=== PATIENT | female | born 1945 | race Caucasian/White ===

== ENCOUNTER 2019-06-10 07:59 | Day surgery (SDC) | payer MEDICARE, OTHER, SELFPAY ==
[2019-05-24 08:23] VITALS: BMI 34.4
[2019-06-10] VITALS (13 sets, daily range): BP systolic 104–145; BP diastolic 52–84; PULSE 79–105; RESP 10–18; TEMP 35.8–36.7; O2SAT 91–97; BMI 32.1
--- NOTE | 2019-06-10 | DI.RAD.S_ITS ---
PROCEDURE: XR HIP W PEL IF DONE RT 4V INDICATIONS: HIP REVISION. TECHNIQUE: 2 view(s) of the hip acquired. [facility] [place], XR PELVIS WITH LATERAL HIP RIGHT, 02/22/2019, 11:14. FINDINGS: Bones: Patient is status post right hip arthroplasty, with hardware components in expected positions. The hip joint appears congruent. The visualized bony structures appear intact. Soft tissues: Overlying postoperative changes are noted. No suspicious soft tissue densities. IMPRESSION: Right total hip arthroplasty procedure, normal alignment established. Dictated by: Moises Bill M.D. on 06/10/2019 at 13:55 Approved by: Moises Bill M.D. on 06/10/2019 at 13:56
--- NOTE | 2019-06-10 06:00 | DI.RAD.S_ITS ---
PROCEDURE: XR PELVIS 1-2V INDICATIONS: post op films TECHNIQUE: Intra-operative view of the pelvis and hip acquired. COMPARISON: [facility], CR, XR HIP W PEL IF DONE RT 4V, 06/10/2019, 12:36. FINDINGS: Bones: Intraoperative devices prior to placement of arthroplasty prostheses are in expected positions. No fractures or suspicious bony lesions. Soft tissues: Overlying surgical retractors are present, along with other intraoperative changes. IMPRESSION: Postoperative change status post right total hip arthroplasty. Dictated by: Cristal Ren M.D. on 06/10/2019 at 16:04 Approved by: Cristal Ren M.D. on 06/10/2019 at 16:04
[2019-06-10] MEDS: ACETAMINOPHEN 325 MG TABLET 975 MG PO (08:43)
[2019-06-10] MEDS: MELOXICAM 7.5 MG TABLET 15 MG PO (08:44)
[2019-06-10] MEDS: PREGABALIN 75 MG CAPSULE PO (08:44)
[2019-06-10] MEDS: LACTATED RINGERS 1,000 ML 42 ML IV ×2 (08:54→11:59)
[2019-06-10] MEDS: CLINDAMYCIN 900 MG/50 ML PIGGYBACK 50 MG IV (10:28)
[2019-06-10] MEDS: TRANEXAMIC ACID 1,000 MG VIAL 1000 MG INJ ×2 (10:45→12:55)
--- NOTE | 2019-06-10 11:09 | SUR.OPER ---
Supine on padded Knippa table with bilateral legs secured in padded positioning boots and suspended in positioning spars, operative leg in traction per surgeon. Head on one pillow. Arm on non-operative side secured on padded armboard <90 degrees abduction. Arm on operative side padded and resting across chest then secured with tape over sheet. Padded perineal post in place per surgeon.
[2019-06-10] MEDS: KETOROLAC 30 MG/ML VIAL IV (11:16)
[2019-06-10] MEDS: ROPIVACAINE 0.5% PF 5 MG/ML 20ML VIAL 60 ML INJ (11:16)
[2019-06-10] MEDS: MORPHINE 4 MG/ML INJ INJ (11:17)
--- NOTE | 2019-06-10 13:10 | PM.OP.1 ---
Operative Date/Time/Diagnoses Date of procedure: 06/10/19 Time of procedure: 13:10 Pre-op diagnosis: R hip OA Post-op diagnosis: same Procedure & Clinicians Procedure: Right anterior MIHAI Same procedure as scheduled: Yes Indications: right hip OA Surgeon: Juvenal Juares Medical Assistant Cardiology: Mamadou Robles Anesthesia Type: Spinal Operative Notes Findings: right hip OA Closure Type: primary Specimen(s): none sent Prosthetic devices, grafts, tissues, transplants, or devices: Bunn and Nephew: 50mm 3-hole R3 cup 50 x 32 XLPE liner 1x 25mm screw 1x 20mm screw Size 9 anthology stem standard offset Biolox 32mm + 0 head Estimated Blood Loss (mL): 300 Blood products transfused: none Procedure in detail: Patient was met in the preoperative holding area where the site and side of surgery were marked by . All last minute questions were answered. Patient was then brought back into the operating room where she was transferred on to the on a table and a spinal anesthetic was placed. Patient then placed supine and both feet were placed in the Ainsworth table boots. The right lower extremity was then prepped and draped in normal sterile fashion. A time-out was performed verifying the site and side of surgery as well as the name of the patient. A 7 cm long incision approximately 2 cm distal and 1 cm lateral from the ASIS image which the fibular head was made. Incision was made using 10. Blade. Followed by electrocautery down to the tensor fascia. Tensor fascia was opened with a new 10 blade. An Allis clip was then placed on the medial leaflet and the tensor was then retracted laterally. The Cobra was then placed over the superior neck. A Meyerding was used to retract the rectus femoris medially and the recurrent vessels were then coagulated. This was Followed by a Cobra under the inferior neck. Retractor was then placed over the anterior wall underneath the rectus. A capsulotomy was then performed intact sutures were placed in the superior and inferior leaflet. A neck cut was then used within reciprocating saw. The foot was then externally rotated 45? and a corkscrew was used to remove the femoral head. The soft tissue protector was then placed followed by replacement of the retractors. We began reaming with a 45 mm Reamer followed by 4749 mm reamers. A 50 mm cup was selected. This was placed underneath fluoroscopic guidance. Two screws were then placed a 25 mm screw and a 20 mm screw. The 50 mm x 32 mm XL PE liner was then placed. Verify that all tabs were down. Foot was then brought back into neutral alignment a femoral elevator hook was placed underneath the femur the foot was dropped onto the ground and a Hughes retractors placed over the medial calcar. A bent Hohmann was then placed over the top of the greater trochanter in the capsule and short external rotators were released as necessary to bring the femur up into the wound. The femur was then elevated using the femoral elevator hook. The canal finer was used followed by the starting broach followed by a 1. Broach all the way up to a 9. Broach we calcar reamed off of this. A standard offset neck was then selected followed by 32 mm +0 trial head. This was reduced and found to be stable at 90? of external rotation as well as 90? of external rotation and full extension down to the floor. Approximately was used to verify good canal fit as well as leg lengths. The hip was then dislocated the trial components were removed and a 9. Final anthology standard offset stem was placed followed by a bio locks 32 mm +0 head. This was then malleted into place on the trunnion. This was then reduced the wound was thoroughly irrigated and final films were obtained. Capsule was then closed with an Ethibond followed by a running 1. Vicryl in the tensor fascia layer followed by 2 Vicryl then a strata fix in the subcuticular layer. Dermabond and Aquacel dressing was then placed. Complications: none Post-operative Condition: stable Disposition: PACU Plan for aftercare: Weightbearing as tolerated right lower extremity. No hip precautions. ASA 81 mg b.i.d. for 6 weeks.
[2019-06-10] MEDS: fentaNYL 100 MCG/2 ML INJ IV ×2 (13:22→13:34)
--- NOTE | 2019-06-10 13:52 | SUR.PHASEI ---
Report called to Jalil.
--- NOTE | 2019-06-10 14:10 | PC.NURSE ---
Day shift: Pt on unit at approx 1410. Oriented to room and call light. Aquacel is intacted with marked shadow drainage. SCD's in place. CMS OK. VS WNL. RA 96%. Call light in reach. Agrees to not get OOB w/o help from staff. Friend at bedside for support.
--- NOTE | 2019-06-10 14:17 | SUR.PHASEI ---
Patient transferred to the floor with belongings bag. VS stable. IV saline locked. Rt hip dressing unchanged. Report given to Jalil.
[2019-06-10] MEDS: ACETAMINOPHEN 325 MG TABLET 650 MG PO ×2 (14:41→21:25)
[2019-06-10] MEDS: HYDROCODONE/ACET 5/325 TABLET 1 TAB PO ×2 (14:41→22:28)
[2019-06-10] MEDS: LACTATED RINGERS 1,000 ML 125 ML IV ×2 (14:52→23:30)
--- NOTE | 2019-06-10 16:34 | PT.IIE ---
Current Diagnoses Unilateral primary osteoarthritis, right hip (06/10/19) Surgery Performed Operation Date: 06/10/19 10:15 Actual Procedures p Total Hip Arthroplasty/Anterior Approach(Right) - Juvenal Juares MD Surgical History (Last Updated 05/24/19 @ 12:39 by Daly Amaral, RN) History of (Acute) History of cholecystectomy (Acute) History of hysterectomy (Acute) S/P foot surgery, left (Acute ~05/2018) Medical History (Last Updated 05/24/19 @ 12:40 by Daly Amaral, RN) Heartburn (Acute) History of colitis (Acute) Primary osteoarthritis of right hip (Acute) Physical Therapy Inpatient Evaluation/Re-Eval M1 PT/OT-IP Prior Functional Status Start: 06/10/19 15:36 Freq: NEEDED Status: Active Protocol: Document 06/10/19 16:11 AW (Rec: 06/10/19 16:34 AW [id number]) Medical Review Prior Functional Status Medical History Reviewed Yes Communication WNL Mobility and Gait Pt broke several bones in her left foot ~2 years ago from a fall. She was treated surgically and was NWB for 3 months. She states her gait has not been normal since that time. She does not typically use any type of AD and denies any limit to her ambulation distance. Activities of Daily Living and IADL's Independent including driving. Prior Functional Level (Other details) Pt reports no falls in 2 years . Social History Household Members none Living Arrangements House Number of Floors (Floors) One Floor Number of Stairs To Enter/Railing? Level entrance. Home Environment High Toilet,Walk in Shower Home Equipment Front Wheel Walker,Straight Cane,Shower Seat without Backrest,Material Worker,Grab Bars Near Toilet,Grab Bars In Shower Employment Status Retired Additional Social History Comment Pt lives alone in a [place]+ community. She describes herself as a . Her sister , Susanne, will stay with her for 7 days at discharge. M2 PT-IP Current Condition Start: 06/10/19 15:36 Freq: NEEDED Status: Active Protocol: Document 06/10/19 16:11 AW (Rec: 06/10/19 16:34 AW [id number]) Physical Therapy Current Condition Current Condition Evaluation Date 06/10/19 Treatment Diagnosis R MIHAI with anterior approach Precautions Other Precautions No hip precautions, per op note. Weight Bearing Status Weight Bearing Status Weight Bear as Tolerated M3 PT-IP Subjective Start: 06/10/19 15:36 Freq: NEEDED Status: Active Protocol: Document 06/10/19 16:11 AW (Rec: 06/10/19 16:34 AW [id number]) Subjective Physical Therapy Visit Type Type Initial Evaluation Visit Start Time 15:44 Visit Stop Time 16:10 Total Visit Minutes 26 Notes Pt's sister, Susanne, present throughout evaluation. Number of TELECOM FIELD TECHNICIAN Visits 0 Physical Therapy Visit Comments Patient Comments Pt willing to mobilize with PT . Patient Goals Pt plans to discharge home with her sister helping out. Therapy Pain Assessment Pain When Pain Assessed During Mobility Pain Present Pain Present Pain Reported Location Rt Hip Intensity 6 Scale Used 6/10 at rest; unchanged with mobility Pain Management Techniques Apply Cold,Modification of Treatment,Timing of Activity with Medications M4 PT-IP Mobility and Gait Start: 06/10/19 15:36 Freq: NEEDED Status: Active Protocol: Document 06/10/19 16:11 AW (Rec: 06/10/19 16:34 AW [id number]) PT-Bed Mobility Assessment Supine to Sit Supine to Sit Standby Assistance Scooting Scooting to Edge of Bed Standby Assistance PT-Transfer Assessment Sit to and From Stand Sit to and from Stand Contact Guard Assistance Equipment Transfer Assistive Device Gait Belt,Front Wheeled Walker Orthotic/Prosthetic Devices or Brace: No Transfers Transfer Destination Chair,Toilet Transfer Technique pt ambulated with FWW Transfer Ability Level of Assist Contact Guard Assistance Comments Mobility Comments Pt was sitting up in bed upon PT arrival. She completed supine to sit SBA and stood at EOB using FWW CGA and cues for hand placement. She ambulated to the toilet where she transferred to and from using the grab bars for support CGA. After gait assessment, she transferred to the chair CGA and was positioned with call light and table within chay, RN attending. Gait Assessment Gait Gait Assistance Required: Standby Assistance,Contact Guard Assist Distance (Feet) 100 Able to Maintain Weight Bearing Status Yes During Gait Assistive Devices Assistive Device Gait Belt,Front Wheeled Walker Orthotic/Prosthetic Devices or Brace: No Gait Deviations General Gait Pattern Antalgic,Decreased Stride Length,Decreased Feet Clearance,Flexed Trunk,Step-to Gait Factors Limiting Gait Function Factors Limiting Gait Function Decreased Strength,Pain Comments Gait Comments Pt ambulated in the solis using FWW CGA to SBA. She was able to correct her step length discrepancy in response to cues. She required additional cueing to maintain proper positioning within the walker frame - not letting the walker get too far ahead of her trunk. Stair Climbing Assessment Comments Stair Climbing Comments Not assessed. No stairs at home. PT-Balance Assessment Sitting Balance and Reactions Static Sitting Balance Ability Good Dynamic Sitting Balance Ability Good Standing Balance and Reactions Static Standing Balance Ability Good Dynamic Standing Balance Ability Good Device Used FWW M5 PT-IP Objective Assessments Start: 06/10/19 15:36 Freq: NEEDED Status: Active Protocol: Document 06/10/19 16:11 AW (Rec: 06/10/19 16:34 AW [id number]) Orientation Orientation/Cognition Level of Alertness Alert Orientation Name,Date,Year,Day of Week, Place,Situation Language Function Ability No Deficits Noted Safety Awareness Understands Safety Issues Memory Description No Deficits Noted Gross Range of Motion Upper Extremity ROM Assessment Within Functional Limits Lower Extremity ROM Assessment Right Impaired Strength Upper Extremity Strength Assessment Within Functional Limits Lower Extremity Strength Assessment Right Impaired Comments Strength Comments LLE grossly 4+/5 Coordination Assessment Gross Coordination Gross Coordination WNL Sensation Assessment Sensation Gross Sensation WNL Muscle Tone Muscle Tone WNL Yes M6 PT-IP Treatment Start: 06/10/19 15:36 Freq: NEEDED Status: Active Protocol: Document 06/10/19 16:11 AW (Rec: 06/10/19 16:34 AW [id number]) Physical Therapy Treatment Exercises Exercises Ankle Pumps,Gluteal Sets,Quad Sets,Heel Slides Education Education Provided Precautions,Weight Bearing Status,Post-Op Packet,Safety Other Treatments Other Treatment Performed Provided education on role of PT, plan of care, weightbearing status, lack of hip precautions, and safe use of FWW. M7 PT-IP Assessment and Plan Start: 06/10/19 15:36 Freq: NEEDED Status: Active Protocol: Document 06/10/19 16:11 AW (Rec: 06/10/19 16:34 AW [id number]) PT Summary Assessment and Plan Potential Rehabilitation Potential Excellent Status of Condition at Evaluation Evolving Summary Impairments Pain,ROM,Strength,Balance,Bed Mobility,Transfers,Gait Assessment Summary Yessenia is a 73 yo woman seen for PT evaluation on POD0 following right MIHAI with anterior approach. Per op note , there are no hip precautions . At baseline, pt admits to gait being affected by remote left foot fractures but is independent without AD and without limit to distance. On evaluation, pt required SBA for bed mobility, CGA for transfers and ambulation with FWW. Pt was able to correct her step-to pattern in response to cues. PT anticipates she will meet the goals of this plan of care and be safe to discharge home with her sister providing assist. She already has outpatient PT set up at [facility] in [place]. Goals Bed Mobility Goal Independent Transfer Goal Independent,Front Wheeled Walker Gait Goal Independent,Front Wheel Walker Gait Distance 220 Days to Meet Goals 2 Frequency of Treatment Frequency Of Treatment Twice a Day Treatment Plan Physical Therapy Treatment Plan Bed Mobility Training,Transfer Training,Gait Training, Therapeutic Exercise,Balance Retraining,Post Op Education, Discharge Planning,Hot or Cold Pack,Neuromuscular Re-ed, Coordination Retraining,Manual Therapy Other Recommendations and Next Treatment review ther ex; progress gait Focus distance Recommendations To Nursing Amount of Assist Needed 1 Person Assist Discharge Recommendations PT Discharge Recommendations Home with Assistance, Outpatient PT Transportation Needs at Discharge Private Vehicle
[2019-06-10] MEDS: CEFAZOLIN 2 GM/100 ML FROZ.PIGGY IV (18:11)
[2019-06-10 18:21] LABS: INR 1.1 (0.9-1.3); Prothrombin Time 12.3 SECONDS (10.1-12.7)
[2019-06-10] MEDS: ASPIRIN EC 81 MG TABLET PO (21:25)
[2019-06-10] MEDS: MELATONIN 3 MG TABLET 9 MG PO (21:25)
[2019-06-10] MEDS: DOCUSATE 100 MG CAPSULE PO (21:25)
[2019-06-10] MEDS: TIZANIDINE 4 MG TABLET 2 MG PO (21:26)
[2019-06-11] MEDS: CEFAZOLIN 2 GM/100 ML FROZ.PIGGY IV (01:29)
[2019-06-11 03:57] VITALS: BP 138/75; PULSE 92; RESP 18; TEMP 37.1; O2SAT 96
[2019-06-11] MEDS: HYDROCODONE/ACET 5/325 TABLET 1 TAB PO (04:12)
[2019-06-11 06:24] LABS: Hematocrit 30.9 % (36-46); Hemoglobin 10.5 g/dL (12.0-16.0)
--- NOTE | 2019-06-11 07:44 | P.PN_ITS ---
Subjective Subjective Date Patient Seen: 06/11/19 Time Patient Seen: 10:02 Interval history: Louie is POd#1 s/p Right MIHAI with Dr. Juares. Pain has been controlled with Tylenol and occasional half tab of [place]. She has significant nausea with narcotics so trying to minimize using this. One episode of emesis last night but denies any nausea this morning. She mobilized about the room without issue. No chest pain or shortness of breath. Exam Vital Signs (past 8 hours): - 06/11/19 03:57 Temperature 98.7 F Pulse Rate 92 H Respiratory Rate 18 Blood Pressure 138/75 Pulse Oximetry 96 Oxygen Delivery Method Room Air Oxygen Flow Rate 0 Narrative Exam Narrative: 73 year old female resting in chair. Alert and oriented in no acute distress. Dressing over right hip saturated. Patient able to fire ankle flexors/extensors. Calf soft and compressible. Pulses symmetric. Objective Labs Result Diagrams: 06/11/19 06:10 Labs: Laboratory Results - last 24 hr 06/10/19 06/11/19 18:05 06:10 Hgb 10.5 L Hct 30.9 L PT 12.3 INR 1.1 Assessment & Plan Assessment & Plan narrative: Patient progressing well post operatively. Dressing change performed today. If she continues to drain will consider pressure dressing. Mobilize with PT later today. She has [place] at home provided preoperatively. Discharge to home later today if cleared with PT. Quality VTE Deep Vein Thrombosis/Pulmonary Embolism Present on Admission: No
--- NOTE | 2019-06-11 08:10 | PT.IPTN ---
Current Diagnoses Unilateral primary osteoarthritis, right hip (06/10/19) Surgery Performed Operation Date: 06/10/19 10:15 Actual Procedures p Total Hip Arthroplasty/Anterior Approach(Right) - Juvenal Juares MD Physical Therapy Treatment Note M2 PT-IP Current Condition Start: 06/10/19 15:36 Freq: NEEDED Status: Active Protocol: Document 06/10/19 16:11 AW (Rec: 06/10/19 16:34 AW [id number]) Physical Therapy Current Condition Current Condition Evaluation Date 06/10/19 Treatment Diagnosis R MIHAI with anterior approach Precautions Other Precautions No hip precautions, per op note. Weight Bearing Status Weight Bearing Status Weight Bear as Tolerated M3 PT-IP Subjective Start: 06/10/19 15:36 Freq: NEEDED Status: Active Protocol: Document 06/11/19 08:10 CLB (Rec: 06/11/19 10:23 CLB [id number]) Subjective Physical Therapy Visit Type Type Treatment Note Visit Start Time 08:10 Visit Stop Time 08:21 Total Visit Minutes 21 Number of FORENSIC INVESTIGATOR Visits 1 Therapy Pain Assessment Pain When Pain Assessed During Mobility Pain Present Pain Present Pain Reported Location Rt Hip Scale Used did not rate Description Pressure Pain Behaviors Wincing Pain Management Techniques Apply Cold,Modification of Treatment,Timing of Activity with Medications M4 PT-IP Mobility and Gait Start: 06/10/19 15:36 Freq: NEEDED Status: Active Protocol: Document 06/11/19 08:10 CLB (Rec: 06/11/19 10:23 CLB [id number]) PT-Bed Mobility Assessment Supine to Sit Supine to Sit Standby Assistance Sit to Supine Sit to Supine Standby Assistance Scooting Scooting to Edge of Bed Standby Assistance PT-Transfer Assessment Sit to and From Stand Sit to and from Stand Standby Assistance Equipment Transfer Assistive Device Gait Belt,Front Wheeled Walker Orthotic/Prosthetic Devices or Brace: No Transfers Transfer Destination Bed,Chair Transfer Technique pt ambulated with FWW Transfer Ability Level of Assist Standby Assistance Comments Mobility Comments Pt in chair upon arrival. Pt stood SBA and ambulated in solis ~240ft with FWW/SBA. Pt required cues for walker position. Pt required SBA for [id number] and pt performed theraputic exercises . Pt required SBA for supine- sit-stand and transfer to chair with verbal cue to place hands on stable surface for sit-stand. Left pt in chair with call light and all other needs within reach. RN and student RN present. Gait Assessment Gait Gait Assistance Required: Standby Assistance Distance (Feet) 240 Able to Maintain Weight Bearing Status Yes During Gait Assistive Devices Assistive Device Gait Belt,Front Wheeled Walker Orthotic/Prosthetic Devices or Brace: No Gait Deviations General Gait Pattern Antalgic,Decreased Stride Length,Decreased Feet Clearance,Flexed Trunk,Step-to Gait Factors Limiting Gait Function Factors Limiting Gait Function Decreased Strength,Pain Comments Gait Comments see mobility comments Stair Climbing Assessment Comments Stair Climbing Comments Not assessed. No stairs at home. PT-Balance Assessment Sitting Balance and Reactions Static Sitting Balance Ability Good Dynamic Sitting Balance Ability Good Standing Balance and Reactions Static Standing Balance Ability Good Dynamic Standing Balance Ability Good Device Used FWW M5 PT-IP Objective Assessments Start: 06/10/19 15:36 Freq: NEEDED Status: Active Protocol: Document 06/10/19 16:11 AW (Rec: 06/10/19 16:34 AW [id number]) Orientation Orientation/Cognition Level of Alertness Alert Orientation Name,Date,Year,Day of Week, Place,Situation Language Function Ability No Deficits Noted Safety Awareness Understands Safety Issues Memory Description No Deficits Noted Gross Range of Motion Upper Extremity ROM Assessment Within Functional Limits Lower Extremity ROM Assessment Right Impaired Strength Upper Extremity Strength Assessment Within Functional Limits Lower Extremity Strength Assessment Right Impaired Comments Strength Comments LLE grossly 4+/5 Coordination Assessment Gross Coordination Gross Coordination WNL Sensation Assessment Sensation Gross Sensation WNL Muscle Tone Muscle Tone WNL Yes M6 PT-IP Treatment Start: 06/10/19 15:36 Freq: NEEDED Status: Active Protocol: Document 06/11/19 08:10 CLB (Rec: 06/11/19 10:23 CLB [id number]) Physical Therapy Treatment Exercises Exercises Ankle Pumps,Gluteal Sets,Quad Sets,Heel Slides Education Education Provided Precautions,Weight Bearing Status,Post-Op Packet,Safety M7 PT-IP Assessment and Plan Start: 06/10/19 15:36 Freq: NEEDED Status: Active Protocol: Document 06/11/19 08:10 CLB (Rec: 06/11/19 10:23 CLB [id number]) PT Summary Assessment and Plan Potential Rehabilitation Potential Excellent Status of Condition at Evaluation Evolving Summary Impairments Pain,ROM,Strength,Balance,Bed Mobility,Transfers,Gait Assessment Summary Pt is SBA for all mobility and has good safety awareness. Pt ambulated ~240ft with steady gait requiring SBA. Pt seems safe to d/c home with sister to assist when medically stable. Goals Bed Mobility Goal Independent Transfer Goal Independent,Front Wheeled Walker Gait Goal Independent,Front Wheel Walker Gait Distance 220 Days to Meet Goals 2 Frequency of Treatment Frequency Of Treatment Twice a Day Treatment Plan Physical Therapy Treatment Plan Bed Mobility Training,Transfer Training,Gait Training, Therapeutic Exercise,Balance Retraining,Post Op Education, Discharge Planning,Hot or Cold Pack,Neuromuscular Re-ed, Coordination Retraining,Manual Therapy Recommendations To Nursing Amount of Assist Needed 1 Person Assist Discharge Recommendations PT Discharge Recommendations Home with Assistance, Outpatient PT Transportation Needs at Discharge Private Vehicle
[2019-06-11] MEDS: ASPIRIN EC 81 MG TABLET PO (08:28)
[2019-06-11] MEDS: ACETAMINOPHEN 325 MG TABLET 650 MG PO (08:29)
[2019-06-11] MEDS: DOCUSATE 100 MG CAPSULE PO (08:29)
[2019-06-11] MEDS: MELOXICAM 7.5 MG TABLET 15 MG PO (08:32)
[2019-06-11 08:55] VITALS: BP 148/76; PULSE 94; RESP 18; TEMP 36.5; O2SAT 97
--- NOTE | 2019-06-11 09:29 | CM.DANOTE ---
DCP/Assessment: Reviewed chart. Patient is 73yr old female admitted to [facility] for right MIHAI performed on 06-10-[address] Juares. PCP is Leandra Chaidez. Primary payor is 1)Medicare 2)Commercial. Met with patient explained CM/SW role. Patient reports that she plans to d/c home when medically stable. Patient has supportive sister/Susanne whom will be staying with her. Patient plans to do outpatient therapy and has all needed DME. Therapy following. P: Home when stable. 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 No Advance Directives on File No: Declined History Provided By Patient,Medical Record Prior Living Arrangements House Household Members none Type of transporation used prior to Drives own vehicle admit Independent with ADL's Yes Is patient alert and oriented? Yes Caregiver for Another No DME Already Rented / Owned FWW / Walker Patient/Family Preference OP PT Therapy Barriers to Discharge No Discharge Plan Home Transportation Arrangement Patient's family can provide transport when patient medically stable. Whiteboard Updated in Patient Room with Yes name and ext. # of Billiard Table Assembler Review Status In Process Next Review Type Continued Stay Review Pre-Anesthesia Assessment Start: 05/24/19 08:23 Freq: Status: Complete Protocol: Document 05/24/19 08:23 [facility] (Rec: 05/24/19 08:36 [facility] [id number]) Pre-Anesthesia Assessment Preferred Name Yessenia Patient Information Reviewed Via Chart Review Assessment Completed With Patient Diagnostic Results EKG Primary Care Provider Sri Thompson Medical Clearance Received Yes Seen Specialist in Last 12 Months Yes Specialist Seen Orthopedist,Spare Parts Clerk Primary Language Grenadian Hydraulic Rubbish Compactor Mechanic Required No Height 165.1 cm Weight 93.9 kg Body Mass Index (BMI) 34.4 Hearing Ability Normal Visual Impairment Partially Limited Visual Assist Glasses Dentition Type Teeth, Natural Present,Dental Implants Barriers to Learning Visual Other Aids No Hx Anesthesia Reactions Yes: N&V Hx Family Anesthesia Reaction No Hx Malignant Hyperthermia No Hx Blood Transfusions No Hx Blood Transfusion Reaction No Anesthesia Review Requested Yes: N&V Electrical Line Mechanic No alcohol intake current alcohol intake frequency 0-2 drinks per day Smoking Status Never smoker Substance Use Type does not use Pain Present Pain Reported Comment Right hip and back Musculoskeletal Symptoms Abnormal Gait,Back Pain, Difficulty Walking,Joint Pain, Joint Stiffness,Joint Swelling ,Limited Range of Motion,Neck Pain History of Falling (Recent or History of Yes ) Patient is completely paralyzed or No completely immobile Ambulatory Aid None/bed rest/nurse assist Gait/Transferring Normal/bedrest/immobile Mental Status Oriented to own ability Is patient on oxygen? No Does patient have VEGA/SOB No Hx Sleep Apnea No CPAP/BIPAP use not prescribed Currently Taking a Beta Bill No Can You Climb a Flight of Stairs Without No SOB Hx Chest Pain No Hx SOB No Hx Syncope or Dizziness No Anti-Coagulant Therapy No Has a Cloth Wire Weaver No Cardiac Testing No Hx Pacemaker/ICD No Pacemaker Rep Required? No Cardiac Clearance Received Not Applicable Diet Type At Home Regular dysphagia No Comment avoids rich or spicy foods Bladder Pattern Incontinent, Stress Urinary Catheter Present No Hx Urinary Self Catheterization No Diabetes No HgbA1C 5.6 Date 04/29/19 Patient No Lactating No Hx Drug Resistant Organism No Presence of External or Internal Medical No Devices Have you traveled outside the [facility] States in the last 30 days? Marital Status Lives With none Prior Living Arrangements House Number of Floors (Floors) One Floor Number of Stairs To Enter/Railing? no stairs Support System Friend(s),Sibling(s) Does the Patient Have Assistance After Yes Surgery Patient Discharge Plan Description Return Home Comment sister will be there 2-3 days Feels Safe in Current Environment Yes Been Physically Hurt or Threatened By a No Person in Current Environment Do you have thoughts of harming yourself None or others? Are you currently considering suicide? No Do you have a plan to hurt yourself or No Plan others? Do You Have Any Spiritual Beliefs That No May Affect Your HC Choices? Do You Have Any Cultural Practices That No May Affect Your HC Choices? Spiritual Referral None Comment Religious Who Can We Speak to About Patient's Care Family & Friends Identifying Code for Release of Patient Declined Information Health Care Proxy/Next of Kin Medardo To Health Care Proxy Emergency Contact Name Daughter Zaria To Emergency Contact Advance Directives? No Advance Directives on File No: Declined Requested Patient Bring Advanced Not Applicable Directives DOS Power of Cloth Examiner Name Daughter - Sri To Power of Cloth Examiner PAC Instructions Assistance for 24 hours post- op,Do not shave/clip surgical site,Durable medical equipment ,Medications to take/avoid, Nasal antibiotic,No ETOH/ petroleum product on skin DOS, NPO,Ortho class,Post-op transportation,Pre-op antibiotic,Pre-surgical wash, Sensory aids,Sturdy shoes/ comfortable clothes,Do not bring valuables and remove jewelry
--- NOTE | 2019-06-11 10:46 | PC.NURSE ---
Day shift: Pt left unit in WC with SUZETTE Garrett. Paperwork is signed and all questions answered. Pt already had MD scripts. DANIEL Steinberg came up and applied a pressure dressing prior to the d/c and Pt and Pt's sister instructed mirtha how to change the dressing to Aquacel in 3 days and also to call SNO if dressing gets over saturated. Pt has all personal belongings.
== END 2019-06-11 10:49 | disposition home or self-care (01) ==
LOC: AC 06-11 07:34 → OR 06-11 11:25
PROVIDERS: Referring Provider Orthopaedic Surgery Foot and Ankle Surgery; Visit Provider Orthopaedic Surgery Adult Reconstructive Orthopaedic Surgery
PROC: (CPT 27130; principal; 2019-06-10 10:15)
DX: M16.11 Unilateral primary osteoarthritis, right hip (principal)
CPT/HCPCS: 27130; 36415; 72170; 73503; 76000; 85014; 85018; 85610; 97110; 97161; C1776; J0690; J1885; J2270; J2704; J3010

== ENCOUNTER → 2022-01-31 10:45 | Outpatient (CLI) | payer MEDICARE, OTHER, SELFPAY ==
[2019-06-10 14:27] VITALS: BMI 32.1
[2022-01-31 11:24] LABS: COVID19 -Nasal RAPID Negative (Negative)
== END ==
PROVIDERS: PCP Family Medicine; Referring Provider Orthopaedic Surgery Orthopaedic Surgery of the Spine; Visit Provider Orthopaedic Surgery Orthopaedic Surgery of the Spine
DX: Z20.822 Contact with and (suspected) exposure to COVID-19 (principal)
CPT/HCPCS: 87635; C9803

== ENCOUNTER → 2022-02-14 13:30 | Outpatient (CLI) | payer MEDICARE, OTHER, SELFPAY ==
[2019-06-10 14:27] VITALS: BMI 32.1
[2022-02-14 15:02] LABS: COVID19 -Nasal RAPID Negative (Negative)
== END ==
PROVIDERS: PCP Family Medicine; Referring Provider Orthopaedic Surgery Orthopaedic Surgery of the Spine; Visit Provider Orthopaedic Surgery Orthopaedic Surgery of the Spine
DX: Z20.822 Contact with and (suspected) exposure to COVID-19 (principal)
CPT/HCPCS: 87635; C9803

== ENCOUNTER 2022-02-16 06:16 | Inpatient (IN) | payer MEDICARE, OTHER, SELFPAY ==
[2019-06-10 14:27] VITALS: BMI 32.1
[2022-01-26 08:21] VITALS: BMI 33.2
[2022-02-16] VITALS (21 sets, daily range): BP systolic 125–191; BP diastolic 72–104; PULSE 70–97; RESP 8–20; TEMP 36.2–36.7; O2SAT 90–98; BMI 33.2
--- NOTE | 2022-02-16 | DI.RAD.S_ITS ---
PROCEDURE: XR LUMBAR SPINE 2-3V INDICATIONS: L3-S1 TLIF TECHNIQUE: 2 intraoperative fluoroscopic views of the lumbar spine were acquired. COMPARISON: None. FINDINGS: Intraoperative fluoroscopic images shows transpedicular fusion at L3 through S1 levels with intervertebral spacer placement. IMPRESSION: Fluoro guidance was provided intraoperatively for posterior fusion of lumbar spine at L3 through S1 levels. Dictated by: Scooter Wilson M.D. on 02/16/2022 at 15:51 Approved by: Scooter Wilson M.D. on 02/16/2022 at 15:51
[2022-02-16] MEDS: LACTATED RINGERS 1,000 ML 42 ML IV ×2 (07:07→09:57)
[2022-02-16] MEDS: ACETAMINOPHEN 325 MG TABLET 975 MG PO (07:11)
[2022-02-16] MEDS: GABAPENTIN 100 MG CAPSULE 400 MG PO (07:17)
--- NOTE | 2022-02-16 07:45 | PM.PREOP ---
Pre-operative Note COVID-19 COVID-19 status: Negative Result date/Date tested (Pos, Neg/Pending): 02/15/22 Criteria for continued procedure: Expected advancement of disease process, Possibility delay results in more complex future surgery or treatment, Increased loss of function, Continuing or worsening of significant or severe pain, Deterioration of the patient's condition or overall health and Delay expected to result in less-positive ultimate med/surg outcome Interval Note History & Physical reviewed/Exam performed by Physician: Yes Changes to H&P: No
[2022-02-16] MEDS: CEFAZOLIN 2 GM/100 ML PREMIX 100 ML IV ×3 (08:01→19:15)
--- NOTE | 2022-02-16 08:26 | SUR.OPER ---
Prone on spine table, head in foam head support, padded chest and pelvic supports, gel pad at knees, lower legs supported by pillows; nipples, genitalia and toes free of pressure, arms secured on foam padded arm boards at <90 degrees abduction. Tape over blanket at thigh secured to table.
[2022-02-16] MEDS: BUPIVACAINE LIPOSOME 266 MG/20 ML VIAL INJ (08:34)
[2022-02-16] MEDS: BUPIVACAINE 0.25% (PF) 30 ML, EPINEPHrine 0.15 MG INJ (08:36)
--- NOTE | 2022-02-16 12:49 | PM.OP.1 ---
Operative Date/Time/Diagnoses Date of procedure: 02/16/22 Time of procedure: 07:40 Pre-op diagnosis: 1. Lumbar scoliosis 2. Lumbar spondylolisthesis 3. Lumbar spinal stenosis with neurogenic claudication Post-op diagnosis: same Procedure & Clinicians Procedure: Patient was seen in the preoperative area. Risks and benefits of the surgery was discussed with the patient. Informed consent was obtained from the patient and placed in the chart. Surgical site was marked. Patient was taken to the operative room. General anesthesia was administered. Prophylactic antibiotic was given to the patient less than 30 min before the incision was made. Patient was placed into a prone position on the Genaro table. Patient's back was then prepped and draped in the sterile fashion. Time-out was performed at this time. After patient was prepped and draped, patient's PSIS was palpated and marked bilaterally. Small 1 cm incision was made over the PSIS for placement of the reference probes. Two trocar was placed into the PSIS 1 on each side. The reference probe was attached to the trocar of the reference apparatus. 1. L3-4, L4-5, L5-S1 Postero-lateral and posterior interbody fusion 2. L3-4, L4-5, L5-S1 interbody cage placement. 3. L3-4, L4-5, L5-S1 decompressive laminectomy with bilateral facetecomies 4. L3-4, L4-5, L5-S1 Posterior segmental instrumentation 5. [place] of bone marrow from iliac crest 6. Utilization of microsurgical technique and operating microscope 7. Utilization of robotic assisted navigation Same procedure as scheduled: Yes Indications: Patient has been having chronic back pain and worsening lumbar radiculopathy. Patient failed multiple conservative management with worsening pain weakness and numbness in her lower extremity. Patient has been having difficulty performing activity of daily living. After discussing risks benefits of treatment options, patient elected proceed with surgery. Surgeon: Juarez Thorpe Human Resources Assistant Manager: Rossana Castillo Click Yes if Unassisted: No Anesthesia Type: General Operative Notes Closure Type: primary Specimen(s): none sent Prosthetic devices, grafts, tissues, transplants, or devices: Globus CREO MIS screws, Rise cages Applied: catheter Estimated Blood Loss (mL): 100 Blood products transfused: none Procedure in detail: Patient was seen in the preoperative area. Risks and benefits of the surgery was discussed with the patient. Informed consent was obtained from the patient and placed in the chart. Surgical site was marked. Patient was taken to the operative room. General anesthesia was administered. Prophylactic antibiotic was given to the patient less than 30 min before the incision was made. Patient was placed into a prone position on the Genaro table. Patient's back was then prepped and draped in the sterile fashion. Time-out was performed at this time. After patient was prepped and draped, patient's PSIS was palpated and marked bilaterally. Small 1 cm incision was made over the PSIS for placement of the reference probes. Two trocar was placed into the PSIS 1 on each side. The reference probe was attached to the trocar of the reference apparatus. At this time the C-arm imaging was used to confirm AP and lateral of L3-4, L4-L5, L5-S1 vertebrae and merged the C-arm imaging using the Transmetrics navigation system with the CT of the lumbar spine. After successful merging was completed and confirmed, skin marker was used to patricia out the skin incision using the Scarosso robotic arm. Bilateral incision was made at this time. Pre templated trajectory was used and guided using the Transmetrics navigation system for bilateral L3, L4, L5, S1 pedicle screw placement. This was done by using the robotic arm to guide the high-speed bur to make a cortical entry point. Next a drill was placed also using the robotic arm and guided using the navigation system drilling partially through bilateral L3, L4, L5 and S1 pedicles. Next L3, L4, L5, S1 pedicle screws it was pre templated and measured was placed onto the power warehouse associate driver and inserted into the pedicles bilaterally. After all 8 screws were placed C-arm imaging was taken of both AP and lateral to confirm the placement. Excellent placement of the screws were confirmed and a matched precisely with the pre planned screw placement using the navigation system. MARs retractor was inserted using Nimsoftivation guidence. Globus MARS retractors was placed inside the incision and docked onto the L3, L4 and L5 lamina. Using microsurgical technique and operating microscope, a L3, L4, L5 laminectomy and L3-4, L4-5, L5-S1 facetectomy was performed using a Kerrison rongeur. Patient was found have severe lateral recess and neural foramen stenosis which was fully decompressed after the laminectomy facetectomy. More than 75% of the facets were removed during the process of decompression rendering L3-4, L4-5, L5-S1 level grossly unstable and required a fusion procedure at the same time. The disc space at L3-4, L4-5, L5-S1 was identified, and a total diskectomy was performed at L3-4, L4-5, L5-S1 level. The endplates were decorticated using a rasp and shaver. The total diskectomy and decortication was performed at L3-4, L4-5, L5-S1 level in order to to accomplish a L3-4, L4-5, L5-S1 fusion. The local bone from the laminectomy and facetectomy was saved for local bone grafting. After the total diskectomy and decortication was completed, Trifecta bone graft material was combined with local bone that was harvested earlier. At this time, a separate skin is incision was made over the iliac crest. A Jamshidi needle was inserted into the iliac crest through a separate skin incision. 5 cc of bone marrow aspiration was obtained through the separate skin incision using a Jamshidi needle from the iliac crest. The bone marrow aspiration was combined with local bone and the Trifecta bone grafting material. The bone grafting material was placed into the L3-4, L4-5, L5-S1 interbody space along with a expandable cage. The cage was expanded to its maximum height using the torque limiting screwdriver. The disc preparation as well as the cage insertion were also performed under navigation guidance. After the cage was placed, AP and lateral C-arm imaging was taken to confirm placement of the cage and excellent position was confirmed. Globus MARS retractor was inserted and docked onto the L3-4, L4-5, L5-S1 posterolateral gutter on the right side. Using the power drill, posterior-lateral decortication was performed at L3-4, L4-5, L5-S1 level until bleeding cortical bone was identified. The remaining bone grafting material was placed into the L3-4, L4-5, L5-S1 posterior lateral gutter he order to accomplish posterolateral fusion at the L3-4, L4-5, L5-S1 level. At this time the tulips were attached to the L3, L4, L5, S1 pedicle screw shanks. After measuring the length of the rods, they were inserted into the tulips of the pedicle screws and locked in place using locking caps and torque limiting screwdriver bilaterally. Total 6 caps and 2 titanium rods was used in order to complete the posterior instrumentation construct. After all the hardware was placed, and confirmed with AP and lateral C-arm imaging, the wound was then irrigated with sterile normal saline and packed with Ray-Jose Enrique gauze for 3 min to accomplish hemostasis. After the gauze was removed the deep fascia was closed with #1 Vicryl suture. The subcutaneous layer was closed with 2-0 Vicryl. The skin was closed with skin teagan. Patient tolerated the procedure well. There were no complications. Neuro monitoring system was used to monitor patient's neurologic status throughout entire procedure. There was no disturbance of the neural monitoring signals throughout the case. Complications: none Post-operative Condition: stable Disposition: PACU Plan for aftercare: Admit to inpatient hospital
[2022-02-16] MEDS: fentaNYL 100 MCG/2 ML INJ IV (13:18)
[2022-02-16] MEDS: HYDROMORPHONE 2 MG INJ IV ×2 (13:20→13:25)
[2022-02-16] MEDS: hydrOXYzine 50 MG/ML INJ 25 MG IM (13:45)
[2022-02-16] MEDS: SODIUM CHLORIDE 0.9% 1,000 ML 100 ML IV (15:07)
--- NOTE | 2022-02-16 15:23 | PC.NURSE ---
Pt to room 205 via bed from PACU. Pt is rousable but sleepy. Able to wiggle toes and move all ext. Denies pain but states she has mild discomfort. Oriented x 3. O2 2L with 96% sat. VSS. SCD's on and running. IVF infusing as ordered. Continuous pulse oximetry on. Attempted to orient Pt to call light, tv controls, and bed controls but she falls back asleep quickly so will discuss again with Pt when she is more awake. Bed alarm on for safety.
--- NOTE | 2022-02-16 16:20 | PT.IIE ---
Current Diagnoses Spondylolisthesis, lumbar region (02/16/22) Spinal stenosis, lumbar region with neurogenic claudication (02/16/22) Surgery Performed Operation Date: 02/16/22 07:45 Actual Procedures p L3-4, L4-5, L5-S1 TLIF w. posterior instrumentation-Robot - Juarez Thorpe MD Surgical History (Last Updated 01/26/22 @ 09:19 by Maite Fuentes, RN) History of History of cholecystectomy History of hysterectomy History of total right hip replacement (06/10/19) Hx of bilateral cataract extraction S/P foot surgery, left (~05/2018) Medical History (Last Updated 01/26/22 @ 09:24 by Maite Fuentes RN) Anesthesia complication COVID-19 virus infection (~08/2021) Heartburn History of colitis Primary osteoarthritis of right hip Physical Therapy Inpatient Evaluation/Re-Eval M1 PT/OT-IP Prior Functional Status Start: 02/16/22 17:02 Freq: NEEDED Status: Active Protocol: Document 02/16/22 16:20 AB (Rec: 02/16/22 17:17 AB [id number]) Medical Review Prior Functional Status Medical History Reviewed Yes Communication able to make needs known Mobility and Gait pt stated that she is independent with all mobiltiies and ambulation without AD Social History Household Members family Living Arrangements House Number of Floors (Floors) One Floor Number of Stairs To Enter/Railing? no steps to enter pt lives in a skilled nursing community 55[facility] Home Environment High Toilet,Walk in Shower Home Equipment Front Wheel Walker,Straight Cane,Grab Bars Near Toilet, Grab Bars In Shower Additional Social History Comment pt stated that her grand daughter lives with her and can help if needed but goes to work and assistance will not be consistent M2 PT-IP Current Condition Start: 02/16/22 17:02 Freq: NEEDED Status: Active Protocol: Document 02/16/22 16:20 AB (Rec: 02/16/22 17:17 AB [id number]) Physical Therapy Current Condition Current Condition Evaluation Date 02/16/22 Treatment Diagnosis s/p L3-4, L4-5, L5S1 TLIF; difficulty in walking Onset Date 02/16/22 M3 PT-IP Subjective Start: 02/16/22 17:02 Freq: NEEDED Status: Active Protocol: Document 02/16/22 16:20 AB (Rec: 02/16/22 17:17 AB [id number]) Subjective Physical Therapy Visit Type Type Initial Evaluation Visit Start Time 16:20 Visit Stop Time 17:00 Total Visit Minutes 40 Number of OUTSIDE SALESPERSON Visits 0 Physical Therapy Visit Comments Patient Comments agreeable to do PT Therapy Pain Assessment Pain When Pain Assessed At Rest Pain Present Pain Present Pain Reported Location Lower Back Intensity 5 Scale Used increases with mobility Pain Management Techniques Distraction,Modification of Treatment,Re-positioning, Timing of Activity with Medications M4 PT-IP Mobility and Gait Start: 02/16/22 17:02 Freq: NEEDED Status: Active Protocol: Document 02/16/22 16:20 AB (Rec: 02/16/22 17:17 AB [id number]) PT-Bed Mobility Assessment Rolling Type of Rolling Log Rolling Level of Assist Maximal Assistance,1 Person Assistance,2 Person Assistance Supine to Sit Supine to Sit Maximum Assistance,1 Person Assistance,2 Person Assistance ,Bedrails Sit to Supine Sit to Supine Maximum Assistance,1 Person Assistance,2 Person Assistance ,Bedrails PT-Transfer Assessment Sit to and From Stand Sit to and from Stand Maximum Assistance,2 Person Assistance,Use of Upper Extremities Equipment Transfer Assistive Device Front Wheeled Walker Orthotic/Prosthetic Devices or Brace: No Comments Mobility Comments BP in supine: 133/78. O2 sat at RA 91%. nurse just took o2 off and to observe o2 sat level. pt educated on back precautions and log roll bed mobility. provided with post- op handout. pt completed log roll supine to sit max A x 1-2 and max cues. c/o increase back pain. initial min A for sitting balance but after repositioning requiring SBA. c/o feeling slight lightheadedness and nausea. o2 sat decreased to 81%. O2 put back on pt at 2L/min and O2 sat increased to 94%. pt required max A for scooting to EOB. completed sit to stand max A x 2 and max cues. able to take side steps towards HOB max A using FWW and max cues. completed sit to supine max A x 1-2 and max cues. positioned pt in bed. call light and table placed within reach. informed pt regarding caregiver training and stated that her daughter will be the one to pick her up from the hospital. Grand daughter will be assisting pt at home as needed. asked pt if grand daughter will be able to come in for training and stated that her grand daughter works. stated that there will not be a consistent person to assist her. informed pt that d/c plan depending on level of assistance and progress. Gait Assessment Gait Gait Assistance Required: Maximum Assistance,1 Person Assist Distance (Feet) 2 Able to Maintain Weight Bearing Status No During Gait Assistive Devices Assistive Device Gait Belt,Front Wheeled Walker Orthotic/Prosthetic Devices or Brace: No Gait Deviations General Gait Pattern Decreased Stride Length, Decreased Feet Clearance Factors Limiting Gait Function Factors Limiting Gait Function Decreased Activity Tolerance, Decreased Strength,Limited Range of Motion,Pain,Poor Balance,Poor Safety Awareness, Respiratory Distress PT-Balance Assessment Sitting Balance and Reactions Static Sitting Balance Ability Fair Dynamic Sitting Balance Ability Fair Standing Balance and Reactions Static Standing Balance Ability Poor Dynamic Standing Balance Ability Poor Device Used FWW M5 PT-IP Objective Assessments Start: 02/16/22 17:02 Freq: NEEDED Status: Active Protocol: Document 02/16/22 16:20 AB (Rec: 02/16/22 17:17 AB [id number]) Orientation Orientation/Cognition Level of Alertness Alert Orientation Name,Place,Situation Language Function Ability No Deficits Noted Safety Awareness Decreased Safety Awareness Memory Description Short Term Impaired Gross Range of Motion Lower Extremity ROM Assessment Within Functional Limits Strength Lower Extremity Strength Assessment Bilaterally Impaired Hip 2+/5 Knee 3+/5 Ankle 4-/5 Coordination Assessment Gross Coordination Gross Coordination WNL Sensation Assessment Sensation Gross Sensation WNL Muscle Tone Muscle Tone WNL Yes M6 PT-IP Treatment Start: 02/16/22 17:02 Freq: NEEDED Status: Active Protocol: Document 02/16/22 16:20 AB (Rec: 02/16/22 17:17 AB [id number]) Physical Therapy Treatment Education Education Provided Precautions,Weight Bearing Status,Post-Op Packet,Safety M7 PT-IP Assessment and Plan Start: 02/16/22 17:02 Freq: NEEDED Status: Active Protocol: Document 02/16/22 16:20 AB (Rec: 02/16/22 17:17 AB [id number]) PT Summary Assessment and Plan Potential Rehabilitation Potential Fair Status of Condition at Evaluation Evolving Summary Impairments Pain,ROM,Strength,Balance, Coordination,Sensation,Tone, Cognition,Bed Mobility, Transfers,Gait,Activity Tolerance Assessment Summary pt requiring max A x 2 with sit to stand and only able to take side steps towards HOB. pt just had surgery this morning and will assess progress during hospital stay. pt will not have a consistent person to assist her upon d/c and may require SNF rehab at this time. Goals Bed Mobility Goal Standby Assistance Transfer Goal Standby Assistance,Front Wheeled Walker Gait Goal Standby Assistance,Front Wheel Walker Gait Distance 150 Days to Meet Goals 5 Frequency of Treatment Frequency Of Treatment Twice a Day Treatment Plan Physical Therapy Treatment Plan Bed Mobility Training,Transfer Training,Gait Training, Therapeutic Exercise,Balance Retraining,Post Op Education, Discharge Planning,Hot or Cold Pack,Neuromuscular Re-ed, Coordination Retraining,Manual Therapy Precautions Lumbar Precautions Log Roll,No Twisting,Limit Bending,Lifting Restriction of 10 lbs,Gait Belt above Incisional Area Recommendations To Nursing Amount of Assist Needed 2 Person Assist Discharge Recommendations PT Discharge Recommendations Home with 28/11 Assist Available,Home Health,SNF Rehab,Home vs SNF Transportation Needs at Discharge Wheelchair/Cabulance
[2022-02-16] MEDS: PROGESTERONE, MICRONIZED 100 MG CAPSULE PO (17:05)
[2022-02-16] MEDS: HYDROCODONE/ACET 5/325 TABLET 2 TAB PO ×2 (17:32→22:32)
[2022-02-16] MEDS: SENNOSIDES 8.6 MG TABLET 17.2 MG PO (20:36)
[2022-02-16] MEDS: MELATONIN 3 MG TABLET 9 MG PO (20:36)
[2022-02-16] MEDS: GABAPENTIN 400 MG CAPSULE PO (20:36)
[2022-02-16] MEDS: DOCUSATE 100 MG CAPSULE PO (20:36)
[2022-02-17 01:00] VITALS: BP 123/53; PULSE 89; RESP 16; TEMP 37; O2SAT 96
[2022-02-17] MEDS: SODIUM CHLORIDE 0.9% 1,000 ML 100 ML IV (02:05)
[2022-02-17] MEDS: CEFAZOLIN 2 GM/100 ML PREMIX 100 ML IV (03:34)
[2022-02-17] MEDS: MAG HYDROX/ALUM/SIMETH 30 ML UDC PO (03:37)
--- NOTE | 2022-02-17 03:49 | PC.NURSE ---
Pt is AxOx4, needs max assistance and cooperative. VSS, pt c/o pain and recieved PRN [place] and Tylenol once each with good effect. Pt also c/o heart burn and recieved PRN Maalox just now. Dressing on back has slight drainage. Michaels catheter is draining well. No other changes. Continue monitor.
[2022-02-17 04:30] VITALS: BP 115/62; PULSE 76; RESP 16; TEMP 36.8; O2SAT 94
[2022-02-17] MEDS: PANTOPRAZOLE DR 20 MG TABLET PO (05:12)
[2022-02-17] MEDS: HYDROCODONE/ACET 5/325 TABLET 1 TAB PO ×3 (06:23→15:30)
[2022-02-17 06:45] LABS: Hematocrit 34.9 % (36-46); Hemoglobin 11.9 g/dL (12.0-16.0)
--- NOTE | 2022-02-17 07:14 | PM.PNPO.1 ---
Subjective Subjective Date Patient Seen: 02/17/22 Time Patient Seen: 07:14 Interval history: Lying in bed, looking forward to getting out of bed and moving around. Pain well-controlled with hydrocodone. Granddaughter coming in today for teaching w/ PT; pt plans to go home with assistance of granddaughter. Exam Vital Signs (past 8 hours): - 02/17/22 01:00 02/17/22 04:30 Temperature 98.6 F 98.3 F Pulse Rate 89 76 Respiratory Rate 16 16 Blood Pressure 123/53 L 115/62 Pulse Oximetry 96 94 Oxygen Flow Rate 0 0 Oxygen Delivery Method Room Air Oxygen Flow Rate 0 Narrative Exam Narrative: 5/5 strength in hip flexors, quadriceps, hamstrings, DF, PF, EHL bilaterally. Sensation to light touch intact in BLE. Calves soft, compressible, nontender and without palpable cords or masses. Low back dressing placed intraoperatively w/ bloody drainage on right, otherwise intact. 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 If she makes good progress w/ PT and is able to void independently, plan to d/c home tomorrow. Postoperative Procedures: Procedures Operation Date: 02/16/22 07:45 Actual Procedure Side Surgeon p L3-4, L4-5, L5-S1 TLIF w. posterior instrumentation-Robot Juarez Thorpe MD Postoperative day: 1 Quality VTE Deep Vein Thrombosis/Pulmonary Embolism Present on Admission: No
[2022-02-17 08:00] VITALS: BP 140/72; PULSE 90; RESP 18; TEMP 36.8; O2SAT 95
[2022-02-17] MEDS: CHOLECALCIFEROL (VITAMIN D3) 400 UNIT TABLET PO (08:57)
[2022-02-17] MEDS: DOCUSATE 100 MG CAPSULE PO ×2 (08:57→21:41)
[2022-02-17] MEDS: BUDESONIDE 3 MG CAP PO (08:58)
[2022-02-17] MEDS: estradioL 1 MG TABLET 0.5 MG PO (08:58)
--- NOTE | 2022-02-17 09:15 | PT.IPTN ---
Current Diagnoses Spondylolisthesis, lumbar region (02/16/22) Spinal stenosis, lumbar region with neurogenic claudication (02/16/22) Arthrodesis status (02/16/22) Surgery Performed Operation Date: 02/16/22 07:45 Actual Procedures p L3-4, L4-5, L5-S1 TLIF w. posterior instrumentation-Robot - Juarez Thorpe MD Physical Therapy Treatment Note M2 PT-IP Current Condition Start: 02/16/22 17:02 Freq: NEEDED Status: Active Protocol: Document 02/16/22 16:20 AB (Rec: 02/16/22 17:17 AB [id number]) Physical Therapy Current Condition Current Condition Evaluation Date 02/16/22 Treatment Diagnosis s/p L3-4, L4-5, L5S1 TLIF; difficulty in walking Onset Date 02/16/22 M3 PT-IP Subjective Start: 02/16/22 17:02 Freq: NEEDED Status: Active Protocol: Document 02/17/22 09:15 AB (Rec: 02/17/22 12:49 AB [email or web address]) Subjective Physical Therapy Visit Type Type Treatment Note Visit Start Time 09:15 Visit Stop Time 09:55 Total Visit Minutes 40 Number of PRIMARY GRADE TEACHER Visits 0 Physical Therapy Visit Comments Patient Comments agreeable to do PT Therapy Pain Assessment Pain When Pain Assessed At Rest Pain Present Pain Present Pain Reported Location Lower Back Scale Used pain scale not stated Pain Management Techniques Distraction,Modification of Treatment,Re-positioning, Timing of Activity with Medications M4 PT-IP Mobility and Gait Start: 02/16/22 17:02 Freq: NEEDED Status: Active Protocol: Document 02/17/22 09:15 AB (Rec: 02/17/22 12:49 AB [email or web address]) PT-Bed Mobility Assessment Rolling Type of Rolling Log Rolling Level of Assist Maximal Assistance Supine to Sit Supine to Sit Maximum Assistance Sit to Supine Sit to Supine Contact Guard Assistance PT-Transfer Assessment Sit to and From Stand Sit to and from Stand Minimal Assistance,Moderate Assistance,1 Person Assistance ,Use of Upper Extremities Equipment Transfer Assistive Device Gait Belt,Front Wheeled Walker Orthotic/Prosthetic Devices or Brace: No Transfers Transfer Destination Chair,Toilet Transfer Technique ambulated Transfer Ability Level of Assist Minimal Assistance,Moderate Assistance,1 Person Assistance ,Use of Upper Extremities Comments Mobility Comments reviewed back precautions with pt and pt able to recall. completed supine to sit max A and max cues. Bed mobility training conducted x 4 reps and continues to require max A with supine to sit; SBA for sit to supine. completed sit to stand min to mod A and required mod A for initial standing balance using fWW for support. ambulated to the chair ~ 15 ft using fWW min to mod A and cues. pt requested to use to toilet. completed sit to stand min to mod A and max cues and ambulated to the toilet using FWW min to mod A. pt wanted to stay on the toilet for awhile. call light placed next to pt and instructed. informed NAC. Asked pt again regarding caregiver training and stated that her grand daughter lives with her and will assist her but grand daughter works from 8am to 5pm. stated that her daughter will be picking her up but will not be at home to assist her and her daughter also works from 8 to 5pm. informed pt regarding safety and importance of assistance at home and caregiver training and if not, then pt has to look at other options. pt understood. Gait Assessment Gait Gait Assistance Required: Minimum Assistance,Moderate Assistance Distance (Feet) 15 Able to Maintain Weight Bearing Status Yes During Gait Assistive Devices Assistive Device Gait Belt,Front Wheeled Walker Orthotic/Prosthetic Devices or Brace: No Gait Deviations General Gait Pattern Antalgic,Decreased Stride Length,Decreased Feet Clearance,Step-to Gait Factors Limiting Gait Function Factors Limiting Gait Function Decreased Activity Tolerance, Decreased Strength,Difficulty Following Directions,Limited Range of Motion,Pain,Poor Balance,Poor Safety Awareness M5 PT-IP Objective Assessments Start: 02/16/22 17:02 Freq: NEEDED Status: Active Protocol: Document 02/16/22 16:20 AB (Rec: 02/16/22 17:17 AB [email or web address]) Orientation Orientation/Cognition Level of Alertness Alert Orientation Name,Place,Situation Language Function Ability No Deficits Noted Safety Awareness Decreased Safety Awareness Memory Description Short Term Impaired Gross Range of Motion Lower Extremity ROM Assessment Within Functional Limits Strength Lower Extremity Strength Assessment Bilaterally Impaired Hip 2+/5 Knee 3+/5 Ankle 4-/5 Coordination Assessment Gross Coordination Gross Coordination WNL Sensation Assessment Sensation Gross Sensation WNL Muscle Tone Muscle Tone WNL Yes M6 PT-IP Treatment Start: 02/16/22 17:02 Freq: NEEDED Status: Active Protocol: Document 02/17/22 09:15 AB (Rec: 02/17/22 12:49 AB [email or web address]) Physical Therapy Treatment Education Education Provided Precautions,Safety M7 PT-IP Assessment and Plan Start: 02/16/22 17:02 Freq: NEEDED Status: Active Protocol: Document 02/17/22 09:15 (Rec: 02/17/22 12:49 [email or web address]) PT Summary Assessment and Plan Potential Rehabilitation Potential Fair Summary Impairments Pain,ROM,Strength,Balance, Coordination,Tone,Cognition, Bed Mobility,Transfers,Gait, Activity Tolerance Progress Towards Goals Slow Progress due to Pain,Slow Progress due to Medical Issues,Slow Progress due to Activity Tolerance Assessment Summary pt requiring max A with bed mobility, min to mod A for transfers and ambulation using FWW. logistics loss prevention manager informed that pt's grand daughter will be coming in today for training at 345pm. will continue to assess progress for safe d/c plan. Recommending 24/7 assist availability at this time and HHPT vs SNF rehab. Goals Bed Mobility Goal Standby Assistance Transfer Goal Standby Assistance,Front Wheeled Walker Gait Goal Standby Assistance,Front Wheel Walker Gait Distance 150 Days to Meet Goals 5 Frequency of Treatment Frequency Of Treatment Twice a Day Treatment Plan Physical Therapy Treatment Plan Bed Mobility Training,Transfer Training,Gait Training, Therapeutic Exercise,Balance Retraining,Post Op Education, Discharge Planning,Hot or Cold Pack,Neuromuscular Re-ed, Coordination Retraining,Manual Therapy Precautions Lumbar Precautions Log Roll,No Twisting,Limit Bending,Lifting Restriction of 10 lbs,Gait Belt above Incisional Area Recommendations To Nursing Amount of Assist Needed 1 Person Assist Discharge Recommendations PT Discharge Recommendations Home with 24/7 Assist Available,Home Health,SNF Rehab,Home vs SNF Transportation Needs at Discharge Wheelchair/Cabulance
[2022-02-17] MEDS: CALCIUM CARBONATE 600 MG TABLET PO (11:11)
--- NOTE | 2022-02-17 11:50 | CM.DANOTE ---
Addendum entered by Leslye Petty R.N. 02/17/22 14:11: [facility] can start Wednesday 02/21. JORDAN Original Note: Initial Discharge Assessment Case reviewed, met with patient, introduced self and role. Payer: Medicare and Commercial Insurance 76 year old single female admitted yesterday for lumbar TLIF. Per therapy she is max assist to get out of bed. PT will be working with her again later today. Patient is sitting up in chair. Taking oral pain meds. Patient lives in [place] with her lyn Nguyen who works. Patient is usually independent. She has 2 daughters-- Cristal lives and works at home in [place] and daughter Selina lives in [facility]. Patient may need SNF, showed her list of SNFs and she is currently adamantly refusing SNF but would accept Home Health. Lyn can come at 3:45 pm today to work with PT if PT still here. Let PT know. Plan: Per ortho PA notes, if patient improves can discharge tomorrow. Follow closely for needs. Patient refuses SNF, will accept HH, will send referral. JORDAN Discharge Planning/Care Management CM Discharge Assessment Start: 02/17/22 11:46 Freq: Status: Active Protocol: Document 02/17/22 11:46 (Rec: 02/17/22 11:50 [id number]) Discharge Planning Assessment Assigned Outsoles Channel Opener Amita Petty RN/DCP Advance Directives? Yes Advance Directives on File No: Declined History Provided By Patient,Medical Record Has Patient been admitted in last 30 No days? Prior Living Arrangements House Household Members family Comment Lyn Nguyen Type of transporation used prior to Drives own vehicle admit Independent with ADL's Yes Is patient alert and oriented? Yes Needs Assistance With Home Chores / Shopping Caregiver for Another No Patient/Family Preference OP PT Therapy Barriers to Discharge Yes Comment weakness-- PT working with Home vs SNF Discharge Plan Home Transportation Arrangement Patient's family can provide transport when patient medically stable. Whiteboard Updated in Patient Room with Yes name and ext. # of Outsoles Channel Opener Review Status In Process Next Review Type Continued Stay Review Pre-Anesthesia Assessment Start: 01/26/22 08:21 Freq: Status: Complete Protocol: Document 01/26/22 08:21 CAB (Rec: 01/26/22 09:51 [facility] [id number]) Pre-Anesthesia Assessment Patient Information Reviewed Via Phone Assessment Assessment Completed With Patient Diagnostic Results BMP/CMP,CBC,EKG Comment Outside labs/ECG scanned, COVID screen 01/31/22 Primary Care Provider Mindy Juan Seen Specialist in Last 12 Months Yes Specialist Seen Senior Lead Project Manager,Orthopedist Primary Language Icelandic Preferred Language Icelandic Process Area Supervisor Required No Height 167.64 cm Weight 93.44 kg Body Mass Index (BMI) 33.2 Hearing Ability Normal Visual Assist Glasses Dentition Type Teeth, Natural Present,Dental Implants Barriers to Learning None Other Aids No Hx Anesthesia Reactions Yes: PONV Hx Family Anesthesia Reaction No Hx Malignant Hyperthermia No Hx Blood Transfusions No Hx Blood Transfusion Reaction No Anesthesia Review Requested Yes: PAC courtesy re: Pre-op ECG changes from prior ECG Renewals Manager No alcohol intake current alcohol intake frequency 0-2 drinks per day Smoking Status Never smoker Substance Use Type does not use Pain Present Pain Reported Musculoskeletal Symptoms Abnormal Gait,Back Pain, Difficulty Walking,Joint Pain, Joint Stiffness,Limited Range of Motion,Neck Pain History of Falling (Recent or History of Yes ) Patient is completely paralyzed or No completely immobile Mental Status Oriented to own ability Is patient on oxygen? No Does patient have VEGA/SOB No Hx Sleep Apnea No CPAP/BIPAP use not prescribed Currently Taking a Beta Bill No Can You Climb a Flight of Stairs Without Yes SOB Hx Chest Pain No Hx SOB No Hx Syncope or Dizziness No Anti-Coagulant Therapy No Has a Senior Lead Project Manager Yes: Visit 01/18/22 for abnormal pre-op ECG Senior Lead Project Manager name Dr. Garland Cardiac Testing Yes: Echo @ [facility] Hx Pacemaker/ICD No Pacemaker Rep Required? No Comment Cardiac records scanned Diet Type At Home Regular dysphagia No Gastrointestinal Symptoms Diarrhea Bladder Pattern Incontinent, Stress Urinary Catheter Present No Hx Urinary Self Catheterization No Diabetes No HgbA1C 5.3 Date 01/11/22 Patient No Lactating No Hx Drug Resistant Organism No Presence of External or Internal Medical Yes: Right hip prosthesis Devices Have you had any close contact with Yes: Pt had COVID 08/2021, someone diagnosed with COVID-19? minimal symptom of fatigue only x 2 days Are you experiencing any of these No symptoms symptoms? Received a COVID vaccine? Yes Received all doses? Yes Marital Status / Lives With family Prior Living Arrangements House Number of Floors (Floors) One Floor Support System Child/Children Does the Patient Have Assistance After Yes: Granddaughter lives w/pt Surgery and will be around to assist with care Patient Discharge Plan Description Return Home Comment Pt advised 1-2 day length of stay per surgeon Feels Safe in Current Environment Yes Been Physically Hurt or Threatened By a No Person in Current Environment Do you have thoughts of harming yourself None or others? Are you currently considering suicide? No Do you have a plan to hurt yourself or No Plan others? Do You Have Any Spiritual Beliefs That No May Affect Your HC Choices? Do You Have Any Cultural Practices That No May Affect Your HC Choices? Comment Jeannine Who Can We Speak to About Patient's Care Family, friends Identifying Code for Release of Patient Declines to issue Information Health Care Proxy/Next of Kin Sri To (daughter) Health Care Proxy Emergency Contact Name Sri (daughter) Blanca ( daughter) Emergency Contact Phone Number Sri: [phone] Blanca: [phone] Advance Directives? No Advance Directives on File No: Declined Power of Associate Store Manager Name Sri To (daughter) Power of Associate Store Manager PAC Instructions Durable medical equipment, Medications to take/avoid, Nasal antibiotic,No ETOH/ petroleum product on skin DOS, NPO,Post-op transportation,Pre -surgical wash,Sensory aids, Sturdy shoes/comfortable clothes,Do not bring valuables and remove jewelry
--- NOTE | 2022-02-17 15:45 | PT.IPTN ---
Current Diagnoses Spondylolisthesis, lumbar region (02/16/22) Spinal stenosis, lumbar region with neurogenic claudication (02/16/22) Arthrodesis status (02/16/22) Surgery Performed Operation Date: 02/16/22 07:45 Actual Procedures p L3-4, L4-5, L5-S1 TLIF w. posterior instrumentation-Robot - Juarez Thorpe MD Physical Therapy Treatment Note M2 PT-IP Current Condition Start: 02/16/22 17:02 Freq: NEEDED Status: Active Protocol: Document 02/16/22 16:20 AB (Rec: 02/16/22 17:17 AB [email or web address]) Physical Therapy Current Condition Current Condition Evaluation Date 02/16/22 Treatment Diagnosis s/p L3-4, L4-5, L5S1 TLIF; difficulty in walking Onset Date 02/16/22 M3 PT-IP Subjective Start: 02/16/22 17:02 Freq: NEEDED Status: Active Protocol: Document 02/17/22 15:45 AB (Rec: 02/17/22 16:34 AB [email or web address]) Subjective Physical Therapy Visit Type Type Treatment Note Visit Start Time 15:45 Visit Stop Time 16:20 Total Visit Minutes 35 Number of BICYCLE TECHNICIAN Visits 0 Therapy Pain Assessment Pain When Pain Assessed At Rest Pain Present Pain Present Pain Reported Location Lower Back Scale Used pain scale not stated but increases with mobility Pain Management Techniques Distraction,Modification of Treatment,Re-positioning, Timing of Activity with Medications M4 PT-IP Mobility and Gait Start: 02/16/22 17:02 Freq: NEEDED Status: Active Protocol: Document 02/17/22 15:45 AB (Rec: 02/17/22 16:34 AB [email or web address]) PT-Bed Mobility Assessment Rolling Type of Rolling Log Rolling Level of Assist Maximal Assistance,1 Person Assistance,2 Person Assistance Supine to Sit Supine to Sit Maximum Assistance,Total Assistance,1 Person Assistance ,2 Person Assistance Sit to Supine Sit to Supine Maximum Assistance,1 Person Assistance Scooting Scooting to Edge of Bed Maximum Assistance Scooting Up and Down in Bed Maximum Assistance PT-Transfer Assessment Sit to and From Stand Sit to and from Stand Maximum Assistance,1 Person Assistance,Use of Upper Extremities Equipment Transfer Assistive Device Gait Belt,Front Wheeled Walker Orthotic/Prosthetic Devices or Brace: No Transfers Transfer Destination Toilet Transfer Technique ambulated Transfer Ability Level of Assist Minimal Assistance,1 Person Assistance,Use of Upper Extremities Comments Mobility Comments daughter just arrived for caregiver training. educated daughter regarding pt's back precautions and log roll bed mobility. pt completed supine to sit log roll with PT assisting max A x 1-2 to total A provided and pt requiring 3 attempts to be able to complete the task. daughter stated that she can take tomorrow off and be with pt until the weekend but pt will be by herself afterwards. Asked daughter if she wants to try to assist pt with log roll bed mobility but declined . stated that pt had enough for now and that pt agreed that pt is not safe to go home at this time. pt requested to use the toilet. max A for scooting to EOB. completed sit to stand max A and max cues and ambulated to the toilet using FWW min A and max cues for safety. pt required mod to max A for controlled descent to the toilet. sit to stand using grab bar CGA and ambulated back to bed using fWW min A and cues. log roll sit to supine max A and max cues. positioned pt in bed max A to total assist with scooting. call light and table placed within reach. pt now agreed that she cannot go home. agreeable to go to SNF. Gait Assessment Gait Gait Assistance Required: Minimum Assistance Distance (Feet) 20 Able to Maintain Weight Bearing Status Yes During Gait Assistive Devices Assistive Device Gait Belt,Front Wheeled Walker Orthotic/Prosthetic Devices or Brace: No Gait Deviations General Gait Pattern Antalgic,Decreased Stride Length,Decreased Feet Clearance Factors Limiting Gait Function Factors Limiting Gait Function Decreased Activity Tolerance, Decreased Strength,Difficulty Following Directions,Limited Range of Motion,Pain,Poor Balance,Poor Safety Awareness M5 PT-IP Objective Assessments Start: 02/16/22 17:02 Freq: NEEDED Status: Active Protocol: Document 02/16/22 16:20 AB (Rec: 02/16/22 17:17 AB [id number]) Orientation Orientation/Cognition Level of Alertness Alert Orientation Name,Place,Situation Language Function Ability No Deficits Noted Safety Awareness Decreased Safety Awareness Memory Description Short Term Impaired Gross Range of Motion Lower Extremity ROM Assessment Within Functional Limits Strength Lower Extremity Strength Assessment Bilaterally Impaired Hip 2+/5 Knee 3+/5 Ankle 4-/5 Coordination Assessment Gross Coordination Gross Coordination WNL Sensation Assessment Sensation Gross Sensation WNL Muscle Tone Muscle Tone WNL Yes M6 PT-IP Treatment Start: 02/16/22 17:02 Freq: NEEDED Status: Active Protocol: Document 02/17/22 15:45 AB (Rec: 02/17/22 16:34 AB [id number]) Physical Therapy Treatment Education Education Provided Precautions,Safety M7 PT-IP Assessment and Plan Start: 02/16/22 17:02 Freq: NEEDED Status: Active Protocol: Document 02/17/22 15:45 AB (Rec: 02/17/22 16:34 AB [id number]) PT Summary Assessment and Plan Potential Rehabilitation Potential Fair Summary Impairments Pain,ROM,Strength,Balance, Coordination,Sensation,Tone, Cognition,Bed Mobility, Transfers,Gait,Activity Tolerance Progress Towards Goals Slow Progress due to Pain,Slow Progress due to Activity Tolerance Assessment Summary Attempted caregiver training but grand daughter declined and agreed that pt is needing too much assistance and that she will not be able to provide 24/ assist to pt. pt and grand daughter agreed for pt to go to SNF rehab. Goals Bed Mobility Goal Standby Assistance Transfer Goal Standby Assistance,Front Wheeled Walker Gait Goal Standby Assistance,Front Wheel Walker Gait Distance 150 Days to Meet Goals 5 Frequency of Treatment Frequency Of Treatment Twice a Day Treatment Plan Physical Therapy Treatment Plan Bed Mobility Training,Transfer Training,Gait Training, Therapeutic Exercise,Balance Retraining,Post Op Education, Discharge Planning,Hot or Cold Pack,Neuromuscular Re-ed, Coordination Retraining,Manual Therapy Precautions Lumbar Precautions Log Roll,No Twisting,Limit Bending,Lifting Restriction of 10 lbs,Gait Belt above Incisional Area Recommendations To Nursing Amount of Assist Needed 1 Person Assist Discharge Recommendations PT Discharge Recommendations SNF Rehab Transportation Needs at Discharge Wheelchair/Cabulance
[2022-02-17] MEDS: ONDANSETRON 4 MG/2 ML INJ IV (17:28)
[2022-02-17] MEDS: PROGESTERONE, MICRONIZED 100 MG CAPSULE PO (17:31)
[2022-02-17] MEDS: HYDROCODONE/ACET 5/325 TABLET 2 TAB PO ×2 (19:26→23:13)
[2022-02-17 20:03] VITALS: BP 141/71; PULSE 105; RESP 16; TEMP 37; O2SAT 93
[2022-02-17] MEDS: GABAPENTIN 400 MG CAPSULE PO (21:41)
[2022-02-17] MEDS: SENNOSIDES 8.6 MG TABLET 17.2 MG PO (21:41)
[2022-02-17] MEDS: MELATONIN 3 MG TABLET 9 MG PO (21:41)
[2022-02-18] VITALS (7 sets, daily range): BP systolic 125–143; BP diastolic 58–81; PULSE 81–91; RESP 16–18; TEMP 35.9–37.3; O2SAT 91–96
[2022-02-18] MEDS: HYDROCODONE/ACET 5/325 TABLET 2 TAB PO ×2 (04:10→18:20)
--- NOTE | 2022-02-18 04:52 | PC.NURSE ---
Pt has been in -01/15 pain and been medicated w/ 2 tab [place] throughout shift. Pt has visable perspiration most likely from pain, no fever present. Using FWW and 2PA when ambulating to the bathroom, needing most help with getting to edge of bed and standing. RN asked about SNF recommendation as pt has been needing so much help and pain issues, pt agreed that is probably needed now. IV was removed as site was compromised. Pt declined another IV at this time.
[2022-02-18] MEDS: PANTOPRAZOLE DR 20 MG TABLET PO (06:18)
--- NOTE | 2022-02-18 07:40 | PM.DS.1 ---
History of Present Illness History of Present Illness Date Patient Seen: 02/18/22 Time Patient Seen: 07:40 Chief complaint: TLIF Narrative: Patient is complaining of moderate low back pain this morning. She notes she did not do very well yesterday with physical therapy and they have recommended an SNF. She does not have anyone at home full-time to help her. Overall she is feeling good and would like to get into a chair for breakfast this morning. She denies any new numbness or tingling down her legs. Discharge Providers Provider Date of admission: 02/16/22 06:16 Discharge Date: 02/18/22 Primary care physician: Mindy Juan MD Consults: 01/26/22 09:52 Consult to Anesthesiology Routine Comment: Consulting Provider: Anesthesiologist Reason for consultation: PAC Courtesy re: Abnormal pre-op ECG 02/16/22 14:53 Consult to Occupational Therapy Evaluate & Treat Comment: Physician Instructions: Evaluate and treat Consult to Physical Therapy Evaluate & Treat Comment: Physician Instructions: Evaluate and Treat Discharge provider: Candice Tinoco PA-C Summary Hospital Course Discharge Diagnosis: 1. Lumbar scoliosis 2. Lumbar spondylolisthesis 3. Lumbar spinal stenosis with neurogenic claudication Hospital Course: Operative Date/Time/Diagnoses Date of procedure: 02/16/22 Time of procedure: 07:40 Procedure & Clinicians Procedure: Patient was seen in the preoperative area. Risks and benefits of the surgery was discussed with the patient. Informed consent was obtained from the patient and placed in the chart.? Surgical site was marked. Patient was taken to the operative room. General anesthesia was administered. Prophylactic antibiotic was given to the patient less than 30 min before the incision was made. Patient was placed into a prone position on the Genaro table. Patient's back was then prepped and draped in the sterile fashion. Time-out was performed at this time. After patient was prepped and draped, patient's PSIS was palpated and marked bilaterally.? Small 1 cm incision was made over the PSIS for placement of the reference probes.? Two trocar was placed into the PSIS 1 on each side.? The reference probe was attached to the trocar of the reference apparatus. 1. L3-4, L4-5, L5-S1 Postero-lateral and posterior interbody fusion 2. L3-4, L4-5, L5-S1 interbody cage placement. 3. L3-4, L4-5, L5-S1 decompressive laminectomy with bilateral facetecomies 4. L3-4, L4-5, L5-S1 Posterior segmental instrumentation 5. [place] of bone marrow from iliac crest 6. Utilization of microsurgical technique and operating microscope 7. Utilization of robotic assisted navigation Same procedure as scheduled: Yes Indications: Patient has been having chronic back pain and worsening lumbar radiculopathy. Patient failed multiple conservative management with worsening pain weakness and numbness in her lower extremity.? Patient has been having difficulty performing activity of daily living.? After discussing risks benefits of treatment options, patient elected proceed with surgery. Surgeon: Juarez Thorpe Echocardiography Tech: Rossana Castillo Click Yes if Unassisted: No Anesthesia Type: General Operative Notes Closure Type: primary Specimen(s): none sent Prosthetic devices, grafts, tissues, transplants, or devices: Globus CREO MIS screws, Rise cages Applied: catheter Estimated Blood Loss (mL): 100 Blood products transfused: none Status at Discharge Cognitive/behavioral status at discharge: at baseline, oriented Functional status at discharge: uses cane/walker Overall status at discharge: patient is progressing back to baseline Exam Vital Signs (past 8 hours): - 02/18/22 00:26 02/18/22 03:58 Temperature 98.2 F 96.7 F L Pulse Rate 91 H 86 Respiratory Rate 17 17 Blood Pressure 143/81 H 135/74 Pulse Oximetry 91 93 Oxygen Flow Rate 0 0 Oxygen Delivery Method Room Air Oxygen Flow Rate 0 Narrative Exam Narrative: 76-year-old female, resting comfortably in bed, no acute distress. She has moderate difficulty performing the log roll to examine her incision. Her dressing demonstrates some serosanguineous drainage. There is no surrounding erythema, induration. Bilateral lower extremity: Motor functions are grossly intact, sensation is grossly intact to light touch, calves are soft and nontender to palpation. 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 Weightbearing as tolerated with front wheel walker. No bending, lifting, twisting x6 weeks -continue with multimodal pain management -DC to SNF once bed is available. She does not have anyone at home and is requiring moderate amount of assistance even to roll over in bed. Discharge Plan Discharge Plan Patient Disposition: SNF Discharge orders & Medications Prescriptions: New hydrocodone-acetaminophen 5-325 mg Tablet See Rx Instructions .ROUTE .COMPLEX PRN (Reason: Pain, Severe (7-10)) Qty: 42 0RF Rx Instructions: Take 1-2 tablets by mouth every 4 hours as needed for moderate to severe postop pain -maximum 3000 mg of acetaminophen from all sources per day hydroxyzine pamoate 25 mg Capsule 25 mg PO Q4HR PRN (Reason: Muscle spasm/pain/nausea) Qty: 60 0RF docusate sodium 100 mg Capsule 100 mg PO BID PRN (Reason: constipation) Qty: 30 0RF sennosides [senna] 8.6 mg Tablet 17.2 mg PO BEDTIME PRN (Reason: constipation) Qty: 30 0RF ondansetron 4 mg tablet,disintegrating 4 mg PO Q6H PRN (Reason: nausea and vomiting) Qty: 40 0RF Continued omeprazole 20 mg Capsule,Delayed Release(Dr/Ec) 20 mg PO DAILY estradiol 0.5 mg Tablet 0.5 mg PO DAILY calcium carbonate-vitamin D3 [Calcium 600 + D(3)] 600 mg(1,500mg) -400 unit Tablet 1 tab PO DAILY potassium gluconate 595 mg (99 mg) Tablet 595 mg PO DAILY melatonin 10 mg Capsule 10 mg PO BEDTIME Sleep Aid (doxylamine) 25 mg Tablet 25 mg PO BEDTIME Move Free [facility] 750 mg-100 mg- 1.65 mg-108 mg Tablet 1 tab PO DAILY turmeric 400 mg Capsule 800 mg PO DAILY budesonide 3 mg Capsule,Delayed,Extend.Release 3 mg PO DAILY Label Comments: takes it every 4th day gabapentin 400 mg Capsule 400 mg PO BEDTIME progesterone micronized 100 mg Capsule 100 mg PO QPM Slow Release Iron 140 mg (45 mg iron) Tablet Extended Release 140 mg PO DAILY Changed acetaminophen 650 mg Tablet Extended Release 650 mg PO BID MDD Max 3000 mg/day, all sources PRN (Reason: fever or pain) Qty: 90 0RF Follow up/Referrals: Mindy Juan MD [Primary Care Provider] - Juarez Thorpe MD [Physician] - As previously scheduled (Follow up with Mamadou Robles PA-C, on 03/02/2022 @ 11:10 am at [facility] in [place].) Diet/Activity/Treatments Diet: Diet as Tolerated Activity: No bending more than 90 degrees at the waist or twisting from side to side. No lifting more than 10 pounds. Cold/Heat Therapy: Heating pad to back as needed for pain. Skin/Wound/Dressing Care Report to your healthcare provider any signs of infection, such as:: chills, fever, night sweats, unusual drainage and unusual redness Dressing: May shower; keep dressing as dry as possible. May take off dressing and replace with clean, dry gauze if it becomes dirty or wet inside. No bathing or otherwise soaking incisions in water. Do not apply any creams, lotions, or ointments to incisions. Special Rehabilitation Services Reason for rehabilitation: Post-operative therapy Rehab type: Physical therapy and Occupational therapy Visit Report/Discharge Packet Instructions: DI for Prescription Opioid Use, DI for Transforaminal Lumbar Interbody Fusion Stand Alone Forms: Surgery Discharge Discharge Data Primary Care Provider: Mindy Juan Quality VTE Deep Vein Thrombosis/Pulmonary Embolism Present on Admission: No
[2022-02-18] MEDS: HYDROCODONE/ACET 5/325 TABLET 1 TAB PO ×3 (07:59→21:21)
[2022-02-18] MEDS: DOCUSATE 100 MG CAPSULE PO ×2 (08:00→20:28)
[2022-02-18] MEDS: BUDESONIDE 3 MG CAP PO (08:01)
[2022-02-18] MEDS: estradioL 1 MG TABLET 0.5 MG PO (08:01)
[2022-02-18] MEDS: hydrOXYzine pamoate 25 MG CAPSULE PO ×3 (08:48→18:20)
--- NOTE | 2022-02-18 09:09 | PC.NURSE ---
Day shift: Pt with nausea and emesis after breakfast (at this time 0900). Pt instructed on I.S. use. Pt back in bed supine position. VS WNL. Will continue to monitor. Call light in reach and bed alarm is on.
--- NOTE | 2022-02-18 10:35 | CM.DPNOTE ---
Addendum entered by Leslye Petty R.N. 02/18/22 12:23: Wendi at [facility] can accept patient tomorrow. They will send cabulance transport at 10 am. Patient is accepting of this plan. Daughter Cristal has been updated and pleased. Plan: [facility] at 10 am tomorrow if medically stable. SEJ Original Note: Discharge Planning Note: Met with patient this morning. After working with PT yesterday PM with lyn here she realizes she cannot go back home with [facility] and is willing to go to SNF. [facility]. Second choice [facility], they have beds and are reviewing chart. She has Medicare and tonight will be her 3rd midnight so will be eligible for SNF admit tomorrow. PASSR completed. Plan: When medically cleared, discharge to SNF. [facility] acceptance pending. Amita Petty RN/DCP
--- NOTE | 2022-02-18 10:38 | PT-IP ANOTE ---
Attempted to see pt at 10:30, pt refused PT due to nausea and dizziness. Will check back in PM.
[2022-02-18] MEDS: ONDANSETRON 4 MG/2 ML INJ IV (12:01)
--- NOTE | 2022-02-18 13:52 | PT.IPTN ---
Current Diagnoses Spondylolisthesis, lumbar region (02/16/22) Spinal stenosis, lumbar region with neurogenic claudication (02/16/22) Arthrodesis status (02/16/22) Surgery Performed Operation Date: 02/16/22 07:45 Actual Procedures p L3-4, L4-5, L5-S1 TLIF w. posterior instrumentation-Robot - Juarez Thorpe MD Physical Therapy Treatment Note M2 PT-IP Current Condition Start: 02/16/22 17:02 Freq: NEEDED Status: Active Protocol: Document 02/16/22 16:20 AB (Rec: 02/16/22 17:17 AB [id number]) Physical Therapy Current Condition Current Condition Evaluation Date 02/16/22 Treatment Diagnosis s/p L3-4, L4-5, L5S1 TLIF; difficulty in walking Onset Date 02/16/22 M3 PT-IP Subjective Start: 02/16/22 17:02 Freq: NEEDED Status: Active Protocol: Document 02/18/22 13:56 KS (Rec: 02/18/22 14:04 KS [id number]) Subjective Physical Therapy Visit Type Type Treatment Note Visit Start Time 13:29 Visit Stop Time 13:52 Total Visit Minutes 23 Number of PROCESS PLANNER Visits 1 Physical Therapy Visit Comments Patient Comments agreeable to do PT M4 PT-IP Mobility and Gait Start: 02/16/22 17:02 Freq: NEEDED Status: Active Protocol: Document 02/18/22 13:56 KS (Rec: 02/18/22 14:04 KS [id number]) PT-Bed Mobility Assessment Sit to Supine Sit to Supine Maximum Assistance,1 Person Assistance Scooting Scooting to Edge of Bed Contact Guard Assistance PT-Transfer Assessment Sit to and From Stand Sit to and from Stand Moderate Assistance,1 Person Assistance,Use of Upper Extremities Equipment Transfer Assistive Device Gait Belt,Front Wheeled Walker Orthotic/Prosthetic Devices or Brace: No Transfers Transfer Destination Bed Transfer Technique ambulated Transfer Ability Level of Assist Minimal Assistance,Moderate Assistance,1 Person Assistance ,Use of Upper Extremities Comments Mobility Comments Pt in chair upon arrival, denies nausea since this PM and agreeable to work w/ PT. Able to recall 3/3 spinal precautions. CGA and increased time for scooting EOC. Mod A x1 and cues for hand placement for sit<>stand from chair w/ FWW. Pt performed [address] prior to initiating gait. She then ambulated ~40 ft in room w/ FWW and CGA. Pt demonstraited good use of FWW however fatigues quickly and has decreased stride and foot clearance. Mod A for slow descent when sitting, Max A for sit<>sup /logroll back into bed for LE elevation. Pt completed 1x10 bilateral ankle pumps, quad sets, and glute sets. Left in bed w/ all needs in reach and SCDs on. Gait Assessment Gait Gait Assistance Required: Contact Guard Assist,Minimum Assistance,1 Person Assist Distance (Feet) 40 Assistive Devices Assistive Device Gait Belt,Front Wheeled Walker Orthotic/Prosthetic Devices or Brace: No Gait Deviations General Gait Pattern Antalgic,Decreased Stride Length,Decreased Feet Clearance Factors Limiting Gait Function Factors Limiting Gait Function Decreased Activity Tolerance, Decreased Strength,Difficulty Following Directions,Limited Range of Motion,Pain,Poor Balance,Poor Safety Awareness Comments Gait Comments Please refer to mobility section for details. Decreased stride, foot clearance, and quick approach to fatigue incrase risk of falls. PT-Balance Assessment Sitting Balance and Reactions Static Sitting Balance Ability Good Dynamic Sitting Balance Ability Good Standing Balance and Reactions Static Standing Balance Ability Fair Dynamic Standing Balance Ability Fair Device Used FWW M5 PT-IP Objective Assessments Start: 02/16/22 17:02 Freq: NEEDED Status: Active Protocol: Document 02/16/22 16:20 AB (Rec: 02/16/22 17:17 AB [id number]) Orientation Orientation/Cognition Level of Alertness Alert Orientation Name,Place,Situation Language Function Ability No Deficits Noted Safety Awareness Decreased Safety Awareness Memory Description Short Term Impaired Gross Range of Motion Lower Extremity ROM Assessment Within Functional Limits Strength Lower Extremity Strength Assessment Bilaterally Impaired Hip 2+/5 Knee 3+/5 Ankle 4-/5 Coordination Assessment Gross Coordination Gross Coordination WNL Sensation Assessment Sensation Gross Sensation WNL Muscle Tone Muscle Tone WNL Yes M6 PT-IP Treatment Start: 02/16/22 17:02 Freq: NEEDED Status: Active Protocol: Document 02/18/22 13:56 KS (Rec: 02/18/22 14:04 KS [id number]) Physical Therapy Treatment Exercises Exercises Ankle Pumps,Gluteal Sets,Quad Sets Education Education Provided Precautions,Safety M7 PT-IP Assessment and Plan Start: 02/16/22 17:02 Freq: NEEDED Status: Active Protocol: Document 02/18/22 13:56 KS (Rec: 02/18/22 14:04 MA [id number]) PT Summary Assessment and Plan Potential Rehabilitation Potential Fair Summary Impairments Pain,ROM,Strength,Balance, Coordination,Sensation,Tone, Cognition,Bed Mobility, Transfers,Gait,Activity Tolerance Progress Towards Goals Slow Progress due to Pain,Slow Progress due to Activity Tolerance Assessment Summary Pt slowly making progress, but still requiring up to Max A for bed mobility and Mod A for sit<>stand w FWW. She is limited by weakness, pain, and low tolerance for activity. She will require SNF to improve functional mobility independence and strength as she does not have someone to provide 28/11 care and assist needed at this time. Goals Bed Mobility Goal Standby Assistance Transfer Goal Standby Assistance,Front Wheeled Walker Gait Goal Standby Assistance,Front Wheel Walker Gait Distance 150 Days to Meet Goals 5 Frequency of Treatment Frequency Of Treatment Twice a Day Treatment Plan Physical Therapy Treatment Plan Bed Mobility Training,Transfer Training,Gait Training, Therapeutic Exercise,Balance Retraining,Post Op Education, Discharge Planning,Hot or Cold Pack,Neuromuscular Re-ed, Coordination Retraining,Manual Therapy Precautions Lumbar Precautions Log Roll,No Twisting,Limit Bending,Lifting Restriction of 10 lbs,Gait Belt above Incisional Area Recommendations To Nursing Amount of Assist Needed 1 Person Assist Discharge Recommendations PT Discharge Recommendations SNF Rehab
[2022-02-18 14:48] LABS: COVID19 -Nasal RAPID Negative (Negative)
[2022-02-18] MEDS: PROGESTERONE, MICRONIZED 100 MG CAPSULE PO (16:07)
[2022-02-18] MEDS: MELATONIN 3 MG TABLET 9 MG PO (20:28)
[2022-02-18] MEDS: GABAPENTIN 400 MG CAPSULE PO (20:28)
[2022-02-18] MEDS: SENNOSIDES 8.6 MG TABLET 17.2 MG PO (20:28)
[2022-02-18] MEDS: SODIUM CHLORIDE 0.9% FLUSH 10 ML IV (21:02)
[2022-02-19] MEDS: HYDROCODONE/ACET 5/325 TABLET 2 TAB PO ×2 (00:19→09:08)
--- NOTE | 2022-02-19 03:15 | PC.NURSE ---
Pt is AxOx4, needs 1 person assistance and cooperative. VSS, except pain on back and pt recieved PRN Norc 1 tab x1, and [place] 2 tabs x1 with good effect. Pt is voiding well. Dressing on her back C/D/O. Pt slept well . Continue monitor.
[2022-02-19] MEDS: PANTOPRAZOLE DR 20 MG TABLET PO (04:45)
[2022-02-19] MEDS: HYDROCODONE/ACET 5/325 TABLET 1 TAB PO (04:45)
[2022-02-19 07:35] VITALS: BP 125/56; PULSE 85; RESP 16; TEMP 36.7; O2SAT 96
[2022-02-19] MEDS: DOCUSATE 100 MG CAPSULE PO (08:00)
[2022-02-19] MEDS: diphenhydrAMINE 25 MG TABLET PO (08:00)
[2022-02-19] MEDS: ACETAMINOPHEN 325 MG TABLET 650 MG PO (08:00)
[2022-02-19] MEDS: CALCIUM CARBONATE 600 MG TABLET PO (08:00)
[2022-02-19] MEDS: CHOLECALCIFEROL (VITAMIN D3) 400 UNIT TABLET PO (08:00)
[2022-02-19] MEDS: estradioL 1 MG TABLET 0.5 MG PO (08:01)
[2022-02-19] MEDS: BUDESONIDE 3 MG CAP PO (08:01)
[2022-02-19] MEDS: SODIUM CHLORIDE 0.9% FLUSH 10 ML IV (08:03)
--- NOTE | 2022-02-19 10:25 | CM.DPNOTE ---
Discharge Planning Note: Faxed all necessary paperwork to Wendi at [facility]. They will be picking up patient at 10:00. Nursing aware and will call report. Patient has no further questions and is getting ready to go. Amita Petty RN/DCP
--- NOTE | 2022-02-19 10:34 | PC.NURSE ---
day shift Pt left via wheelchair and medical transport to [facility], Pt had all personal belongings. All paperwork in [facility] packet. Pt was given Pain medication PER MAR for Transport. Pt denied nausea. Pt left the floor at 1015
--- NOTE | 2022-03-21 13:00 | P.HP_ITS ---
History of Present Illness History of Present Illness Date Patient Seen: 02/16/22 Time Patient Seen: 07:40 Date of Onset of Symptoms: 06/18/20 Chief complaint: TLIF Narrative: 76-year-old female presenting for follow-up. She was last seen by me September 06 and had a right L4-5 transforaminal epidural steroid injection on August 24. She reports that symptoms have since returned, same as it was prior to the injection. Continues to be in the right lower lumbar spine and right anterior aspect of the thigh, typically worsened in the morning and with prolonged sitting. He has a prior history of right hip arthroplasty. She has progressive leg weakness and numbness along with chronic back pain that is limiting her. She had chiropractor treatment in the past with no relief. 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) Hx of bilateral cataract extraction S/P foot surgery, left (~05/2018) Family & Social History Social History: household members family Prior Living Arrangements House Safety & Behavioral: Feels Safe in Current Yes Environment Been Physically Hurt or No Threatened By a Person Suicidal Ideation Description None Suicide Plan Description No Plan Tobacco & Substance use: Smoking Status Never smoker alcohol intake current alcohol intake frequency 0-2 drinks per day Substance Use Type does not use Meds Home Medications and Allergies Home Medications Medication Instructions Recorded Confirmed Type budesonide 3 mg 3 mg PO DAILY Colitis per pt 05/24/19 02/16/22 History capsule,delayed,extended release calcium carbonate 600 mg-vitamin 1 tab PO DAILY 05/24/19 02/16/22 History D3 10 mcg (400 unit) tablet (Calcium 600 + D(3)) doxylamine succinate 25 mg tablet 25 mg PO BEDTIME 05/24/19 02/16/22 History (Sleep Aid (doxylamine)) estradiol 0.5 mg tablet 0.5 mg PO DAILY 05/24/19 02/16/22 History glucosam 750 mg-chondroi 100 1 tab PO DAILY 05/24/19 02/16/22 History mg-hyalur 1.65 mg-CF borate 108 mg tablet (Move Free [facility]) melatonin 10 mg capsule 10 mg PO BEDTIME 05/24/19 02/16/22 History omeprazole 20 mg capsule,delayed 20 mg PO DAILY 05/24/19 02/16/22 History release potassium gluconate 595 mg (99 mg) 595 mg PO DAILY 05/24/19 02/16/22 History tablet turmeric 400 mg capsule 800 mg PO DAILY 05/24/19 02/16/22 History ferrous sulfate 140 mg (45 mg 140 mg PO DAILY 01/26/22 02/16/22 History iron) tablet,extended release (Slow Release Iron) gabapentin 400 mg capsule 400 mg PO BEDTIME 01/26/22 02/16/22 History progesterone micronized 100 mg 100 mg PO QPM 01/26/22 02/16/22 History capsule acetaminophen 650 mg 650 mg PO BID PRN fever or pain 02/18/22 Rx tablet,extended release #90 tabs docusate sodium 100 mg capsule 100 mg PO BID PRN constipation #30 02/18/22 Rx caps hydrocodone 5 mg-acetaminophen 325 See Rx Instructions .Route 02/18/22 Rx mg tablet .COMPLEX PRN Pain, Severe (7-10) #42 tabs hydroxyzine pamoate 25 mg capsule 25 mg PO Q4HR PRN Muscle 02/18/22 Rx spasm/pain/nausea #60 caps ondansetron 4 mg disintegrating 4 mg PO Q6H PRN nausea and 02/18/22 Rx tablet vomiting #40 tabs sennosides 8.6 mg tablet (senna) 17.2 mg PO BEDTIME PRN 02/18/22 Rx constipation #30 tabs diphenhydramine HCl 25 mg tablet 25 mg PO Q6HR PRN Itching #60 tabs 02/19/22 Rx (Allergy (diphenhydramine)) hydrocodone 5 mg-acetaminophen 325 1 tab PO Q4H PRN pain #42 tabs 02/19/22 Rx mg tablet Allergies Allergy/AdvReac Type Severity Reaction Status Date / Time cefaclor [From [facility]] Allergy Severe Rash, Verified 02/16/22 07:19 difficulty breathing Penicillins Allergy Intermediate Rash Verified 02/16/22 07:19 adhesive tape AdvReac Severe Rash Verified 02/16/22 07:19 oxycodone AdvReac Mild N&V; Verified 02/16/22 07:19 Makes me weird Review of Systems Review of Systems ROS: Yes All systems reviewed with the patient and are negative except as otherwise documented Exam Vital Signs (past 8 hours): Oxygen Delivery Method Room Air Oxygen Flow Rate 0 Back/Spine/Pelvis Other: Limited ROM of lumbar spine due to pain Neuro Other: + straight leg raise to LLE, sensibility decreased to bilateral L3, L4, L5 derma tome, motor strength decreased to bilateral TA and EHL at 4/5. Objective Labs Result Diagrams: 02/17/22 06:21 Assessment & Plan Assessment & Plan narrative: Ms. Hendricks is here for evaluation of her lumbar spine. She has L3-4, L5-S1 spondylolisthesis, L4-5 spinal stenosis with symptoms of neurogenic claudication and L3-4, L4-5, L5-S1 foramen stenosis with radiculopathy. She failed over 1 year of conservative care including injections, chiropractor treatment with back pain, leg pain and leg weakness that is limiting her ability to perform activity of daily living. I discussed my findings with her. SHe may benefit from decompression with laminectomies and total facetecomies at L3-4, L4-5, L5-S1 level, which will render these levels further unstable and will require a fusion procedure at the same time. Risks for surgery include but not limited to bleeding, infection, nerve/dura/bladder/bowel/blood vessel injury, need for additional procedure, even . Patient understands and would like to proceed with surgery. I scheduled her for L3-4, L4-5, L5-S1 TLIF. Time Spent With Patient Critical Care time: I spent a total of [] minutes of critical care time on this patient's care today; this time is exclusive of procedural time. Quality VTE Deep Vein Thrombosis/Pulmonary Embolism Present on Admission: No
== END 2022-02-19 10:39 | DRG 455 ==
PROVIDERS: Physician Assistant; Admitting Provider Orthopaedic Surgery Orthopaedic Surgery of the Spine; PCP Family Medicine; Referring Provider Orthopaedic Surgery Orthopaedic Surgery of the Spine; Visit Provider Orthopaedic Surgery Orthopaedic Surgery of the Spine
PROC: 0SG10AJ Fusion of 2 or more Lumbar Vertebral Joints with Interbody Fusion Device, Posterior Approach, Anterior Column, Open Approach (ICD-10-PCS; principal; 2022-02-16 07:45)
DX: M43.17 Spondylolisthesis, lumbosacral region (principal); M48.062 Spinal stenosis, lumbar region with neurogenic claudication; M41.86 Other forms of scoliosis, lumbar region; M43.16 Spondylolisthesis, lumbar region; G89.18 Other acute postprocedural pain; R12 Heartburn; Z20.822 Contact with and (suspected) exposure to COVID-19
CPT/HCPCS: 36415; 72100; 76000; 85014; 85018; 87635; 97110; 97162; 97166; 97530; 97535; C9803; C1713; C9290; J0171; J0690; J1170; J2250; J2405; J3010; J3410

== ENCOUNTER → 2022-04-20 16:01 | Outpatient (ROUT) | payer MEDICARE, OTHER, SELFPAY ==
[2022-02-16 14:54] VITALS: BMI 33.2
== END ==
PROVIDERS: PCP Family Medicine; Visit Provider Dermatology
DX: D48.5 Neoplasm of uncertain behavior of skin (principal)
CPT/HCPCS: 87070; 87075; 87205

== ENCOUNTER → 2023-06-06 17:06 | Outpatient (ROUT) | payer MEDICARE, OTHER, SELFPAY ==
[2022-02-16 14:54] VITALS: BMI 33.2
== END ==
PROVIDERS: PCP Family Medicine; Visit Provider Dermatology
DX: L08.9 Local infection of the skin and subcutaneous tissue, unspecified (principal); L57.8 Other skin changes due to chronic exposure to nonionizing radiation; X32.XXXA Exposure to sunlight, initial encounter; L71.8 Other rosacea
CPT/HCPCS: 87070; 87075; 87205